=== PATIENT | male | born 1975 | race Caucasian/White ===

== ENCOUNTER 2017-11-25 20:14 | Inpatient (IN) ==
[2017-11-25] MEDS ORDERED: *HR* Promethazine 25 MG/ML VIAL IVP PRN (21:55)
[2017-11-25] MEDS ORDERED: Naloxone 0.4 MG/ML INJ IVP PRN (21:55)
[2017-11-25] MEDS ORDERED: Ondansetron 4 MG/2 ML VIAL IVP PRN (21:55)
[2017-11-25] MEDS ORDERED: MOM Conc 10 ML UD.LIQ PO PRN (21:55)
[2017-11-25] MEDS ORDERED: Ipratropium/Albuterol Neb 3 ML IH PRN (21:59)
[2017-11-25] MEDS ORDERED: Vancomycin 1,250 MG in D5% in Water 250 ML IVPB SCH (22:00)
--- NOTE | 2017-11-25 22:10 | Internal Med History&Physical ---
Date of Encounter: 11/25/17 Time of Encounter: 22:02 Assessment and Plan (1) SIRS (systemic inflammatory response syndrome) Current visit: No Status: Acute we will admit the pt into Med Surg He does meet SIRS criteria with elevated WBC, Source of inf as cellulites and tachycardia Normal Lactic acid Reviewed CT scan results.. Reviewed labs IV hdyration NS @ 125ml/hr O2 Duoneb PRN Blood cx sent at [place] ER Will check wound cx cont empirical abx Vanco (suspecting MRSA ) and Zosyn ( Psuedomonas and anaerobe coverage ) will consult surgery in AM for possible debridement NPO after mid night Cont symptomatic and supportive care IV analgesics (2) Cellulitis of upper back excluding scapular region Current visit: Yes Status: Acute Internal Medicine - H&P: HPI Chief complaint: Back pain.. Upper back cellulties Admitted From: Emergency Dept Plans for Post Hospital Care: Home History of present illness: Mr. Waggoner is a 41 year old male with no significant past medical history other than multiple skin abscess in the past, now he presented to [place] emergency room with upper back swelling also with puruelnt drainage noticed 2 days ago.. Patient stated that his swelling and erythema seems to be worsening. CT showed cellulities Rt posterior neck and posterior upper thorax consistent with cellulities. He was transferred here for further higher level of care. Pt denied any CP . 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 However he does pick his skin all the time. Pt was given IV Vanco and Zosyn in the ER. Past Med Surg Social Fam HX - Past Medical History Medical history: hypertension Psychiatric history: no psych history - Social History Smoking Status: Current every day smoker Smokeless Tobacco Status: No Alcohol use: none Drug use: none Internal Medicine - H&P: Meds No Known Home Drugs 11/25/17 [History] 3 Allergy/AdvReac Type Severity Reaction Status Date / Time No Known Allergies Allergy Verified 11/25/17 16:48 All Systems PM: A 10-system review of systems was performed and is negative for pertinent findings except as documented above in the HPI. Review of systems: Reviewed all the systems everything is benign except the systems and symptoms I mentioned in HPI - Constitutional Vitals: Temp Pulse Resp BP Pulse Ox 98.2 F 97 34 149/96 98 11/25/17 21:31 11/25/17 21:31 11/25/17 21:31 11/25/17 21:31 11/25/17 21:31 General appearance: Present: A&O X 3, no acute distress, answers questions appropriately - Head Head exam: Present: atraumatic, normal inspection - Neck Neck exam general surgery: Present: full ROM, supple - Respiratory Respiratory exam: Present: decreased breath sounds, wheezes (mild). Absent: rales, respiratory distress, rhonchi - Cardiovascular Cardiovascular exam: Present: +S1, +S2, tachycardia. Absent: systolic murmur - GI/Abdominal GI/Abdominal exam: Present: normal bowel sounds, soft. Absent: rebound, rigid, tenderness - Extremities Exam Extremities exam: Absent: calf tenderness, pedal edema, tenderness - Back Exam Back exam: Absent: CVA tenderness (L), CVA tenderness (R), tenderness Additional comments: 5x6 cm size erythematous rash with open ulcer in the middle noticed over Rt upper back above the scapular region. Purulent discharge noticed. - Neurological Exam Neurological exam: Present: alert, oriented X3 - Psychiatric Psychiatric exam: Present: anxious
[2017-11-25] MEDS: 0.9 % Sodium Chloride 1,000 ML IVC SCH (23:53)
[2017-11-25] MEDS: *HR* HYDROcodone/Acet 5/325 mg TABLET PO PRN (23:54)
[2017-11-25] MEDS: Nicotine 21 MG PATCH.TD24 TD SCH (23:55)
[2017-11-26] MEDS: Acetaminophen 325 MG TABLET PO PRN ×2 (01:25→19:12)
[2017-11-26] MEDS: Vancomycin 1,250 MG in D5% in Water 250 ML IVPB SCH ×2 (05:13→17:36)
[2017-11-26 05:20] LABS: Hemoglobin A1C 5.2 %
[2017-11-26 05:22] LABS: Basophils % 0.2 %; Eosinophils % 0.2 %; Hematocrit 41.8 % (37.5-50.1); Hemoglobin 13.8 g/dL (12.9-16.9); Immature Granulocytes % 0.7 % (0-4); Lymphocytes # 1.6 K/mcL (0.6-4.6); Lymphocytes % 9.1 %; Mean Corpuscular Volume 90.9 fL (83.0-100.0); Mean Platelet Volume 11.9 fL (9.4-12.4); Monocytes # 1.7 K/mcL (0.0-1.3); Monocytes % 9.5 %; Neutrophils # 14.4 K/mcL (1.6-8.9); Platelet Count 176 K/mcL (140-400); Red Cell Distribution Width 12.8 % (11.5-14.5); Segmented Neutrophils % 80.3 %
[2017-11-26 05:36] LABS: BUN/Creatinine Ratio 11 (6-26); Blood Urea Nitrogen 8 mg/dL (6-20); Calcium 8.2 mg/dL (8.6-10.3); Carbon Dioxide 23 mEq/L (23-29); Chloride 108 mEq/L (98-107); Glucose 146 mg/dL (70-105); Magnesium 1.8 mg/dL (1.6-2.6); Osmolality,Calculated 283 (280-300); Potassium 3.6 mEq/L (3.5-5.1); Sodium 136 mEq/L (136-145); eGFR For African Americans > 60 (> 60); eGFR For Non-African Americans > 60 (> 60)
[2017-11-26] MEDS: *HR* HYDROcodone/Acet 5/325 mg TABLET PO PRN ×3 (08:46→22:44)
[2017-11-26] MEDS: 0.9 % Sodium Chloride 1,000 ML IVC SCH ×2 (08:46→12:45)
[2017-11-26] MEDS: Nicotine 21 MG PATCH.TD24 TD SCH (08:46)
[2017-11-26] MEDS: *HR* FentaNYL (PF) 100 MCG/2 ML VIAL IVP PRN ×2 (12:45→17:37)
--- NOTE | 2017-11-26 18:00 | Internal Med Progress Note ---
Date of Encounter: 11/26/17 Time of Encounter: 11:00 - Assessment and plan (1) Sepsis Current Visit: Yes Status: Acute Assessment and plan: Patient presented with fever, tachycardia, leukocytosis. Normal lactic acid. Secondary to cellulitis and abscess in upper back. Continue IV hydration, IV antibiotics and follow up cultures. Monitor vital signs closely. Qualifiers: Sepsis type: sepsis due to unspecified organism Qualified Code(s): A41.9 - Sepsis, unspecified organism (2) Abscess Current Visit: Yes Status: Acute Assessment and plan: CT chest shows focal pocket of fluid measuring 4.7 x 1.1 cm, could represent an abscess, with surrounding inflammatory changes along the upper back. Continue IV vancomycin and Zosyn. Follow-up Gram stain and wound culture. Supportive care with pain control with when necessary IV fentanyl and oral hydrocodone. Surgery consultation for possible incision and drainage of abscess , will follow-up recommendations. (3) Tobacco abuse Current Visit: Yes Status: Chronic Assessment and plan: Continue nicotine transdermal patch. (4) Cellulitis of upper back excluding scapular region Current Visit: Yes Status: Acute Assessment and plan: Plan as above. - Subjective Interval history: Reports upper back pain. Improving fever, chills. No chest pain, shortness of breath, vomiting or diarrhea. - Constitutional Vitals: Temp Pulse Resp BP Pulse Ox 98.2 F 100 20 129/80 96 11/26/17 15:08 11/26/17 15:08 11/26/17 15:08 11/26/17 15:08 11/26/17 15:08 General appearance: Present: mild distress, A&O X 3, answers questions appropriately - Respiratory Respiratory exam: Present: CTAB. Absent: accessory muscle use, rales, rhonchi, wheezes - Cardiovascular Cardiovascular exam: Present: RRR, +S1, +S2. Absent: diastolic murmur, gallop, rubs, systolic murmur - GI/Abdominal GI/Abdominal exam: Present: normal bowel sounds, soft, no peritoneal signs. Absent: distended, tenderness - Extremities Exam Extremities exam: Present: full ROM, warm, radial pulses palpable and symmetrical. Absent: calf tenderness, cyanotic, pedal edema - Back Exam Additional comments: Right upper back with 5 x 5 cm focal swelling, opened with dry crusted seropurulent discharge; surrounding extensive erythema/tenderness/induration extending into the posterior neck; - Neurological Exam Neurological exam: Present: CN II-XII intact, oriented X3, no focal deficits. Absent: pronater drift, facial droop, speech deficit Internal Medicine: Result - Labs CBC & Chem 7: 11/26/17 05:00 11/26/17 05:00 Labs: Short CBC 11/26/17 Range/Units 05:00 WBC 18.0 H (4.3-11.1) K/mcL Hgb 13.8 D (12.9-16.9) g/dL Hct 41.8 (37.5-50.1) % Plt Count 176 (140-400) K/mcL Neutrophils # 14.4 H (1.6-8.9) K/mcL BMP 11/26/17 05:00 Sodium 136 Potassium 3.6 Chloride 108 H Carbon Dioxide 23 BUN 8 Creatinine 0.71 Glucose 146 H Calcium 8.2 L Consult Discharge Plan - Plan Referrals: NONE,PCP [Primary Care Provider] - Lee Orozco [Family Provider] -
--- NOTE | 2017-11-26 20:38 | General Surgery Consult Note ---
Date of Encounter: 11/26/17 Time of Encounter: 20:35 History of Present Illness Requesting physician: Kait Hartmann History of present illness: General Surgery - this is a delayed dictation. The patient was initially seen approx 1400 for surgical assessment and treatment. The patient requested that he be fed rather than be kept NPO until surgery this evening 41-year-old male transferred from [facility] after presenting there with mid upper back swelling and purulent drainage. Symptoms began 2 days ago but the patient admits that this had "building" for the past several days. CT demonstrated cellulitis right posterior neck and posterior upper thorax consistent with cellulitis. He was transferred to [facility] for further evaluation and care. He was transferred to. Surgical consultation was placed today. At the time of my initial visit the patient was in no acute distress however this evening the patient is febrile to 102.3; heart rate is elevated to 116; respiratory status stable of 14; blood pressure stable at 140/86 Allergies: No known drug allergies Medications: no home meds. Social history: Patient is a current every day smoker; he denies alcohol or illicit drug use Physical examination: age-appropriate male resting comfortably in his hospital bed. This evening he was in distress related to pain and purulent drainage from the abscess mid upper thorax. The patient is febrile this evening - 102.3 Skin is quite warm; moist, without obvious jaundice Lungs: Clear bilaterally Posterior thorax - complex 6 cm ulcerated area upper midline and purulent drainage. Tenderness limits my ability to examine the lesion but I suspect presence of subcutaneous fluid. This lesion appears to be an inflamed, infected EIC that will require I&D Cardiac: Earlier today his rate was regular approximately 95 bpm but currently he is tachycardic 116; no appreciable murmurs Abdomen: Soft nontender Extremities no obvious clubbing, cyanosis or edema. Laboratories: White count 18.8, hemoglobin 13.8, hematocrit 41.8; neutrophils 14.4% Electrolytes, BUN, creatinine within normal limits Impression: Abscess versus inflamed infected epidermal inclusion cyst upper midline posterior thorax Patient will require incision and drainage As the patient has eaten today; surgery is planned for a.m. I discussed this at length with the patient. Risks include hemorrhage, infection, failure to heal, and recurrence Consent has been obtained. Plan: Surgery tomorrow Nothing by mouth after midnight except for medications Signed surgical consent to accompany patient to OR. Past Med Surg Social Fam HX - Past Medical History Medical history: hypertension Psychiatric history: no psych history - Past Surgical History Surgical History: appendectomy, orthopedic, other - Social History Smoking Status: Current every day smoker Packs per day: 1 Smokeless Tobacco Status: No Alcohol use: none Drug use: none Medications and Allergies No Known Home Drugs 11/25/17 [History] 3 Allergy/AdvReac Type Severity Reaction Status Date / Time No Known Allergies Allergy Verified 11/25/17 16:48 Review of Systems All systems PM: A 10-system review of systems was performed and is negative for pertinent findings except as documented above in the HPI. General Surgery Exam Initial Vital Signs Temp Pulse Resp BP Pulse Ox 98.2 F 97 34 149/96 98 11/25/17 21:31 11/25/17 21:31 11/25/17 21:31 11/25/17 21:31 11/25/17 21:31 Exam Initial Vital Signs Temp Pulse Resp BP Pulse Ox 98.2 F 97 34 149/96 98 11/25/17 21:31 11/25/17 21:31 11/25/17 21:31 11/25/17 21:31 11/25/17 21:31 Results - Labs 11/26/17 05:00 11/26/17 05:00 Abnormal lab results WBC 18.0 K/mcL (4.3-11.1) H 11/26/17 05:00 Neutrophils # 14.4 K/mcL (1.6-8.9) H 11/26/17 05:00 Monocytes # 1.7 K/mcL (0.0-1.3) H 11/26/17 05:00 Chloride 108 mEq/L (98-107) H 11/26/17 05:00 Glucose 146 mg/dL (70-105) H 11/26/17 05:00 POC Glucose 111 (58-89) H 11/26/17 11:37 Calcium 8.2 mg/dL (8.6-10.3) L 11/26/17 05:00 Diabetes panel 11/26/17 11/26/17 Range/Units 05:00 05:00 Sodium 136 (136-145) mEq/L Potassium 3.6 (3.5-5.1) mEq/L Chloride 108 H (98-107) mEq/L Carbon Dioxide 23 (23-29) mEq/L BUN 8 (6-20) mg/dL Creatinine 0.71 (0.70-1.30) mg/dL Glucose 146 H (70-105) mg/dL Hemoglobin A1c 5.2 ( - 5.6) % Calcium 8.2 L (8.6-10.3) mg/dL Calcium panel 11/26/17 Range/Units 05:00 Calcium 8.2 L (8.6-10.3) mg/dL Pituitary panel 11/26/17 Range/Units 05:00 Sodium 136 (136-145) mEq/L Potassium 3.6 (3.5-5.1) mEq/L Chloride 108 H (98-107) mEq/L Carbon Dioxide 23 (23-29) mEq/L BUN 8 (6-20) mg/dL Creatinine 0.71 (0.70-1.30) mg/dL Glucose 146 H (70-105) mg/dL Calcium 8.2 L (8.6-10.3) mg/dL Adrenal panel 11/26/17 Range/Units 05:00 Sodium 136 (136-145) mEq/L Potassium 3.6 (3.5-5.1) mEq/L Chloride 108 H (98-107) mEq/L Carbon Dioxide 23 (23-29) mEq/L BUN 8 (6-20) mg/dL Creatinine 0.71 (0.70-1.30) mg/dL Glucose 146 H (70-105) mg/dL Calcium 8.2 L (8.6-10.3) mg/dL All other labs normal. Consult Discharge Plan - Plan Referrals: NONE,PCP [Primary Care Provider] - Lee Orozco [Family Provider] -
[2017-11-27] MEDS: Vancomycin 1,250 MG in D5% in Water 250 ML IVPB SCH (04:17)
[2017-11-27 05:13] LABS: Basophils # 0.1 K/mcL (0.0-0.2); Basophils % 0.3 %; Eosinophils # 0.1 K/mcL (0.0-0.6); Eosinophils % 0.7 %; Hematocrit 37.7 % (37.5-50.1); Immature Granulocytes % 0.5 % (0-4); Lymphocytes # 1.3 K/mcL (0.6-4.6); Lymphocytes % 7.7 %; Mean Corpuscular HGB Conc 32.4 g/dL (31.6-35.5); Mean Corpuscular Volume 92.9 fL (83.0-100.0); Mean Platelet Volume 11.8 fL (9.4-12.4); Monocytes # 1.3 K/mcL (0.0-1.3); Monocytes % 8.1 %; Neutrophils # 13.6 K/mcL (1.6-8.9); Platelet Count 151 K/mcL (140-400); Red Blood Count 4.06 M/mcL (4.19-5.50); Red Cell Distribution Width 12.8 % (11.5-14.5); Segmented Neutrophils % 82.7 %
[2017-11-27 05:14] LABS: Hemoglobin 12.2 g/dL (12.9-16.9)
[2017-11-27 05:55] LABS: BUN/Creatinine Ratio 8 (6-26); Blood Urea Nitrogen 7 mg/dL (6-20); Calcium 8.1 mg/dL (8.6-10.3); Carbon Dioxide 25 mEq/L (23-29); Chloride 103 mEq/L (98-107); Glucose 148 mg/dL (70-105); Osmolality,Calculated 275 (280-300); Potassium 3.8 mEq/L (3.5-5.1); Sodium 132 mEq/L (136-145); eGFR For African Americans > 60 (> 60); eGFR For Non-African Americans > 60 (> 60)
[2017-11-27] MEDS: 0.9 % Sodium Chloride 1,000 ML IVC SCH ×2 (06:12→23:57)
[2017-11-27] MEDS: *HR* HYDROcodone/Acet 5/325 mg TABLET PO PRN (06:15)
--- NOTE | 2017-11-27 08:26 | Internal Med Progress Note ---
<Prabhu Hernandez - Last Filed: 11/27/17 14:05> Date of Encounter: 11/27/17 Time of Encounter: 08:23 - Assessment and plan (1) Abscess Current Visit: Yes Status: Acute Assessment and plan: CT chest shows focal pocket of fluid measuring 4.7 x 1.1 cm, could represent an abscess, with surrounding inflammatory changes along the upper back. -Continue IV vancomycin and Zosyn. -Wound CX was positive for staph aureus Plan: -Surgery today -Fentanyl 25 mcg IV Q4H PRN -Carroll 5-325 PO Q6 PRN -Vancomycin 1250 mg IV Q12 -Zosyn 3.375 g IV Q8 (2) Sepsis Current Visit: Yes Status: Acute Assessment and plan: Patient presented with fever, tachycardia, leukocytosis; Normal lactic acid White count has decreased from 18 to 16.4. -Secondary to cellulitis and abscess in upper back -Continue IV hydration, IV antibiotics and follow up cultures -Monitor vital signs closely. Qualifiers: Sepsis type: sepsis due to unspecified organism Qualified Code(s): A41.9 - Sepsis, unspecified organism (3) Bacteremia Current Visit: Yes Status: Acute Assessment and plan: Patient's blood culture was positive for staph Repeat blood culture TTE (4) Cellulitis of upper back excluding scapular region Current Visit: Yes Status: Acute Assessment and plan: General surgery is on board; possible surgery today. (5) Tobacco abuse Current Visit: Yes Status: Chronic Assessment and plan: Continue nicotine transdermal patch. - Subjective Interval history: Mr. Waggoner is a 41 year old male with no significant PMH other than multiple skin abscess in the past, who presented to [place] ED with upper back swelling and puruelnt drainage that he noticed 2 days prior. Patient stated that his swelling and erythema seems to be worsening. CT showed cellulities Rt posterior neck and posterior upper thorax consistent with cellulities. He was transferred here for further higher level of care. Pt denied any CP . 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 Admits that he does pick his skin all the time. Pt was given IV Vanco and Zosyn in the ER. Upon arrival, 34 BP was elevated at 149 /96 and respiratory rate was 34. All other vital signs were within normal limits. Laboratory analysis significant for the following: white count 18.8, hemoglobin 13.8, hematocrit 41.8; neutrophils 14.4. General surgery has been consulted. Per impression of gen surg: Abscess vs. inflamed infected epidermal inclusion cyst upper midline posterior thorax. Patient will require incision and drainage. Possible surgery today; patient was placed NPO after midnight except for medications. Patient seen and examined at bedside this morning. Reported feeling "under the weather." Reports a moderate amount of pain in his back, but states that pain is reasonably controlled at this time. - Constitutional Vitals: Temp Pulse Resp BP Pulse Ox 98.0 F 98 12 136/82 97 11/27/17 07:46 11/27/17 07:46 11/27/17 07:46 11/27/17 07:46 11/27/17 07:46 General appearance: Present: mild distress, A&O X 3, answers questions appropriately - Head Head exam: Present: atraumatic, normocephalic - Eye Eye exam: Present: PERRL, conjuntiva pink, sclera anicteric Pupils: Present: PERRL - Neck Neck exam general surgery: Present: supple, trachea midline. Absent: lymphadenopathy - Respiratory Respiratory exam: Present: CTAB. Absent: accessory muscle use, rales, rhonchi, wheezes - Cardiovascular Cardiovascular exam: Present: RRR, +S1, +S2. Absent: diastolic murmur, gallop, rubs, systolic murmur - GI/Abdominal GI/Abdominal exam: Present: normal bowel sounds, soft, no peritoneal signs. Absent: distended, tenderness - Extremities Exam Extremities exam: Present: warm, radial pulses palpable and symmetrical. Absent : calf tenderness, cyanotic, pedal edema - Back Exam Additional comments: scars visible - Neurological Exam Neurological exam: Present: CN II-XII intact, oriented X3, no focal deficits. Absent: pronater drift, facial droop, speech deficit - Skin Skin exam: Present: dry Internal Medicine: Result - Labs CBC & Chem 7: 11/27/17 05:00 11/27/17 05:00 Labs: Short CBC 11/27/17 Range/Units 05:00 WBC 16.4 H (4.3-11.1) K/mcL Hgb 12.2 L D (12.9-16.9) g/dL Hct 37.7 (37.5-50.1) % Plt Count 151 (140-400) K/mcL Neutrophils # 13.6 H (1.6-8.9) K/mcL [facility] 11/27/17 05:00 Sodium 132 L Potassium 3.8 Chloride 103 Carbon Dioxide 25 BUN 7 Creatinine 0.84 Glucose 148 H Calcium 8.1 L Consult Discharge Plan - Plan Referrals: Conner Pappas MD [Non-Partnered Physician] - NONE,PCP [Primary Care Provider] - <MichelleEdmundo T - Last Filed: 11/27/17 15:11> Date of Encounter: 11/27/17 - Constitutional Vitals: Temp Pulse Resp BP Pulse Ox 98.8 F 112 16 124/88 92 11/27/17 14:51 11/27/17 14:51 11/27/17 14:51 11/27/17 14:51 11/27/17 14:51 Internal Medicine: Result - Labs CBC & Chem 7: 11/27/17 05:00 11/27/17 05:00 Labs: Short CBC 11/27/17 Range/Units 05:00 WBC 16.4 H (4.3-11.1) K/mcL Hgb 12.2 L D (12.9-16.9) g/dL Hct 37.7 (37.5-50.1) % Plt Count 151 (140-400) K/mcL Neutrophils # 13.6 H (1.6-8.9) K/mcL [facility] 11/27/17 05:00 Sodium 132 L Potassium 3.8 Chloride 103 Carbon Dioxide 25 BUN 7 Creatinine 0.84 Glucose 148 H Calcium 8.1 L - Attending Attestation seen and evaluated at bedside 41 M with staph aureus bacteremia, cellulitis and abscess of his back. Wound culture also growing staph aurues, sensitivity is pending,patient is on Vanco and Zosyn He is complaining of night sweats. Physical exam is remarkable for multiple scabs on his hands and healed skin lesions on his back, as well as upper R shoulder posterior region with a wound dressing that is slightly soaked Labs and Imaging reviewed: Leukocytosis , slowly improving. A1C is normal. Continue IV antibiotics, repeat blood culture. Per Surgery, he is for Incision and drainage today. Rest as in resident physician's documentation
[2017-11-27] MEDS: Nicotine 21 MG PATCH.TD24 TD SCH (08:38)
--- NOTE | 2017-11-27 11:59 | Anesthesia Evaluation PreOp ---
Date of Encounter: 11/27/17 Time of Encounter: 11:58 - Past History Planned Operation: I & D abcess Cardiac History: HTN (no longer medicated) Pulmonary History: Smoker (1ppd x 24yrs) [employer] History: Denies Any Significant HX Other Medical History: Denies Any Significant HX, Other (This hospitalization: +SIRS,+MRSA in blood) Anesthesia History: No Prior Anesthetic Complications (R-ankel, Appy, T&A), Past Anesthesia Alcohol Use: none Drug use: none Medications and Allergies No Known Home Drugs 11/25/17 [History] 3 Allergy/AdvReac Type Severity Reaction Status Date / Time No Known Allergies Allergy Verified 11/25/17 16:48 - Meds/Allergy Pre-op Review Medications Reviewed: Yes Allergies Reviewed: Yes Anesthesia Results - Labs 11/27/17 05:00 11/27/17 05:00 Laboratory Results WBC 16.4 K/mcL (4.3-11.1) H 11/27/17 05:00 RBC 4.06 M/mcL (4.19-5.50) L 11/27/17 05:00 Hgb 12.2 g/dL (12.9-16.9) L D 11/27/17 05:00 Hct 37.7 % (37.5-50.1) 11/27/17 05:00 MCV 92.9 fL (83.0-100.0) 11/27/17 05:00 MCH 30.0 pg (28.0-33.3) 11/27/17 05:00 MCHC 32.4 g/dL (31.6-35.5) 11/27/17 05:00 RDW 12.8 % (11.5-14.5) 11/27/17 05:00 Plt Count 151 K/mcL (140-400) 11/27/17 05:00 MPV 11.8 fL (9.4-12.4) 11/27/17 05:00 Immature Gran % 0.5 % (0-4) 11/27/17 05:00 Seg Neutrophils % 82.7 % 11/27/17 05:00 Lymphocytes % 7.7 % 11/27/17 05:00 Monocytes % 8.1 % 11/27/17 05:00 Eosinophils % 0.7 % 11/27/17 05:00 Basophils % 0.3 % 11/27/17 05:00 Neutrophils # 13.6 K/mcL (1.6-8.9) H 11/27/17 05:00 Lymphocytes # 1.3 K/mcL (0.6-4.6) 11/27/17 05:00 Monocytes # 1.3 K/mcL (0.0-1.3) 11/27/17 05:00 Eosinophils # 0.1 K/mcL (0.0-0.6) 11/27/17 05:00 Basophils # 0.1 K/mcL (0.0-0.2) 11/27/17 05:00 Sodium 132 mEq/L (136-145) L 11/27/17 05:00 Potassium 3.8 mEq/L (3.5-5.1) 11/27/17 05:00 Chloride 103 mEq/L (98-107) 11/27/17 05:00 Carbon Dioxide 25 mEq/L (23-29) 11/27/17 05:00 BUN 7 mg/dL (6-20) 11/27/17 05:00 Creatinine 0.84 mg/dL (0.70-1.30) 11/27/17 05:00 Est GFR ( Amer) > 60 (> 60) 11/27/17 05:00 Est GFR (Non-Af Amer) > 60 (> 60) 11/27/17 05:00 BUN/Creatinine Ratio 8 (6-26) 11/27/17 05:00 Glucose 148 mg/dL (70-105) H 11/27/17 05:00 POC Glucose 91 (58-89) H 11/27/17 11:09 Est Mean Plasma Glucose 103 mg/dl 11/26/17 05:00 Hemoglobin A1c 5.2 % (-5.6) 11/26/17 05:00 Calculated Osmolality 275 (280-300) L 11/27/17 05:00 Lactic Acid 0.9 mmol/L (0.5-2.2) 11/26/17 05:00 Calcium 8.1 mg/dL (8.6-10.3) L 11/27/17 05:00 Magnesium 1.8 mg/dL (1.6-2.6) 11/26/17 05:00 Anesthesia Exam Vital Signs Temp Pulse Resp BP Pulse Ox 11/27/17 11:04 98.4 F 97 14 128/83 97 11/27/17 07:46 98.0 F 98 12 136/82 97 11/27/17 03:42 99.4 F 102 15 130/87 97 11/26/17 23:43 99.1 F 101 15 141/76 97 11/26/17 21:28 100.1 F H 116 14 125/78 97 11/26/17 19:05 102.3 F H 116 14 140/86 96 11/26/17 15:08 98.2 F 100 20 129/80 96 Intake and Output 11/26/17 11/27/17 11/27/17 23:59 07:59 15:59 Intake Total 741 / 741 1045 / 1045 0 / 0 Output Total 550 / 550 700 / 700 200 / 200 Balance 191 / 191 345 / 345 -200 / -200 Intake: IV Fluids 501 / 501 1045 / 1045 0.9 % Sodium Chloride 1,000 ML 51 / 51 795 / 795 @ 100 mls/hr IVC .Q10H TOY Rx#: [id number] Zosyn 3.375 GM In 0.9 % Sodium 200 / 200 Chloride 100 ML @ 25 mls/hr IVPB Q8H TOY Rx#:[id number] Vancocin 1,250 MG In Dextrose 5 250 / 250 250 / 250 % 250 ML @ 166.667 mls/hr IVPB Q12H TOY Rx#:[id number] Oral 240 / 240 0 / 0 0 / 0 Output: Urine 550 / 550 700 / 700 200 / 200 Other: Meal Dinner Percent of Meal Consumed 100% Weight 88.8 kg Blood Glucose* 143 91 Patient Weight 11/27/17 23:59 Weight 88.8 kg Height: 5'6" Weight: 195# bmi = 31.6 NPO (# of Hours): mnOC - HEENT Pupil (Motor): Pupils equal, EOMI Mallampati: III Teeth: Poor dentition (V. poor dentition with multiple nubs rotting at gumline & several others missing) Oral Opening: Greater than 3 - METALWORKING [employer] LOC: Oriented [employer]ALWORKING [employer] Motor: Normal RUE, Normal LUE, Normal RLE, Normal LLE, Normal Face [employer] Sensory: Normal: RUE, LUE, RLE, LLE, Face - Cardiac Rhythm: Regular Murmur: None - Pulmonary Breath Sounds: bilateral Clear Respiratory Effort: Symmetrical Anesthesia Assess/Plan ASA Score: 2 (Smoker) Modified Kathy Scale for Level of Consciousness: Cooperative, oriented, and tranquil Anesthetic Plan: General Monitoring Plan: Standard Monitors Recovery Plan: PACU Anes Supervising Prov Stmt: PT seen/evaluated, R&B discussed, questons answered and consent obtained. Christopher Miller MD
[2017-11-27] MEDS ORDERED: *HR* OxyCODONE Immed Rel 5 MG TABLET PO PRN (12:01)
[2017-11-27] MEDS ORDERED: *HR* Promethazine 25 MG/ML VIAL IVP PRN (12:01)
[2017-11-27] MEDS ORDERED: *HR* HYDROcodone/Acet 7.5/325 mg TABLET PO PRN (12:01)
[2017-11-27] MEDS ORDERED: *HR* HYDROmorphone 2 MG TABLET PO PRN (12:01)
[2017-11-27] MEDS ORDERED: MORPHINE SUL Oral CONC 10 MG/0.5 ML ORAL.SYG SL PRN (12:01)
[2017-11-27] MEDS ORDERED: *HR* FentaNYL (PF) 100 MCG/2 ML VIAL ONE (12:09)
[2017-11-27] MEDS ORDERED: *HR* Propofol 200 MG/20 ML VIAL IVP ONE ×2 (12:09→13:49)
[2017-11-27] MEDS ORDERED: Lidocaine -MPF 4% 5 ML AMPUL ONE (12:11)
[2017-11-27] MEDS ORDERED: Dexamethasone 4 MG/ML VIAL ONE (12:11)
[2017-11-27] MEDS ORDERED: Lidocaine -MPF 2% 2 ML VIAL ONE (12:11)
[2017-11-27] MEDS ORDERED: *HR* Succinylcholine 200 MG/10 ML VIAL IVP ONE (12:11)
[2017-11-27] MEDS ORDERED: Ondansetron 4 MG/2 ML VIAL ONE (12:11)
[2017-11-27] MEDS ORDERED: Acetaminophen IV 1,000 MG/100 ML INFUS..BTL ONE (12:51)
--- NOTE | 2017-11-27 14:30 | Operative Note ---
Date of procedure: 11/27/17 Pre-op diagnosis: Abscess upper midline posterior thigh Post-op diagnosis: same Procedure: Incision, drainage, and debridement abscess upper midline posterior thorax Complications: None apparent Anesthesia: [facility] Surgeon: Conner Pappas Was there an child center assistant present: No Estimated blood loss (cc): 25 IV fluids (cc): 500 Specimen: aerobic and anaerobic cultures; necrotic tissue from abscess Condition: stable Disposition: PACU Procedure in Detail: The patient was brought to the operating room where he was placed supine on the operating room table. The patient was appropriately identified as to person and procedure. The accuracy of this information was confirmed by the patient and the procedure team. The patient was then intubated and anesthetized by [facility]. When the airway was secured, the patient was placed in a left lateral decubitus position. The abscess and upper posterior thorax was prepped and draped in usual sterile fashion. The abscess with surrounding induration measured 12 cm in diameter. When the skin was compressed multiple drainage sites of pus were encountered. A transverse incision was placed over the readily apparent abscess midline onto the right scapula. The incision was extended to the spinal fascia. There was no formed abscess cavity but pus was exiting the incised tissue. Aerobic and anaerobic cultures were obtained. The wound was then debrided of obviously necrotic tissue. Wound was copiously irrigated with a pulsatile irrigation system (Pulsavac plus) using 3 L of saline. Bleeding points were controlled with electrocautery but the entire wound was hemorrhagic due to the acute inflammation. Wound was packed with half -inch iodoform gauze, covered by 4 x 4 gauze, followed by an ABD, followed by tape. The patient was taken to recovery in stable condition. Needle, sponge, and instrument counts were correct at the close of the case.
--- NOTE | 2017-11-27 15:04 | Anesthesia Evaluation Post Op ---
Date of Encounter: 11/27/17 Time of Encounter: 15:00 - Vital Signs Vital Signs: Vital Signs/O2 Sat/Glucose, Most Current Temp Pulse Resp BP Pulse Ox 11/27/17 14:51 98.8 F 112 16 124/88 92 11/27/17 14:41 110 16 121/85 93 11/27/17 14:31 112 16 121/79 92 11/27/17 14:21 99.5 F 122 21 125/78 96 - Lungs Lungs: Clear Ascult./Percussion - Airway Airway: Non-obstructed - Cardiovascular Regular Rate - Mental Status Mental Status: Alert & Oriented, Answers Appropriately - Pain Pain Scale: 0 - Nausea Vomiting Nausea Vomiting: Not Present - Hydration Hydration: Tolerates oral liquids - Discharge PostOp Status: Transfer Patient to floor
[2017-11-27] MEDS ORDERED: Acetaminophen 325 MG TABLET PO PRN (15:18)
[2017-11-27] MEDS ORDERED: Naloxone 0.4 MG/ML INJ IVP PRN (15:18)
[2017-11-27] MEDS ORDERED: MOM Conc 10 ML UD.LIQ PO PRN (15:18)
[2017-11-27] MEDS ORDERED: Ondansetron 4 MG/2 ML VIAL IVP PRN (15:18)
[2017-11-27] MEDS ORDERED: *HR* FentaNYL (PF) 100 MCG/2 ML VIAL IVP PRN (15:18)
[2017-11-27] MEDS ORDERED: Ipratropium/Albuterol Neb 3 ML IH PRN (15:18)
[2017-11-28 06:14] LABS: Basophils % 0.1 %; Eosinophils % 0.1 %; Hematocrit 37.6 % (37.5-50.1); Hemoglobin 12.2 g/dL (12.9-16.9); Immature Granulocytes % 1.4 % (0-4); Lymphocytes # 0.8 K/mcL (0.6-4.6); Lymphocytes % 4.4 %; Mean Corpuscular HGB Conc 32.4 g/dL (31.6-35.5); Mean Corpuscular Hemoglobin 29.9 pg (28.0-33.3); Mean Corpuscular Volume 92.2 fL (83.0-100.0); Mean Platelet Volume 12.5 fL (9.4-12.4); Monocytes % 5.1 %; Neutrophils # 16.6 K/mcL (1.6-8.9); Platelet Count 173 K/mcL (140-400); Red Blood Count 4.08 M/mcL (4.19-5.50); Red Cell Distribution Width 12.6 % (11.5-14.5); Segmented Neutrophils % 88.9 %
[2017-11-28] MEDS: Nicotine 21 MG PATCH.TD24 TD SCH (09:30)
--- NOTE | 2017-11-28 10:49 | General Surgery Progress Note ---
Date of Encounter: 11/28/17 Time of Encounter: 10:44 Subjective Patient reports: feels better, pain is less Narrative: General Surgery - POD #1 Patient feeling much improved; afebrile, pulse 84, respirations 16, blood pressure 114/75 And swelling upper midline posterior thorax significantly diminished. Erythema persists Wound posterior thorax examined; serosanguineous drainage on gauze dressing; packing intact, no obvious pus draining after operative debridement Cultures dated 11/25/17 demonstrate MRSA Operative cultures obtained yesterday, pending Labs: Increased leukocytosis - 18.7, likely response to surgery; neutrophilia also increased to 16.6% Impression: Postoperative day 1, status post incision, drainage, debridement large abscess upper posterior thorax Pain and swelling diminished Plan: maintain wound packing today, begin to extract this packing tomorrow. Objective Vital Signs - Last 8 Hours Temp Pulse Resp BP Pulse Ox 11/28/17 07:33 97.7 F 84 16 114/75 98 11/28/17 04:12 97.5 F L 84 14 119/79 96 Intake and Output 11/27/17 11/28/17 11/28/17 23:59 07:59 15:59 Intake Total 610 / 610 1369 / 1369 340 / 340 Output Total 1500 / 1500 1600 / 1600 Balance -890 / -890 -231 / -231 340 / 340 Intake: IV Fluids 250 / 250 649 / 649 100 / 100 0.9 % Sodium Chloride 1,000 ML 299 / 299 @ 75 mls/hr IVC .[id number] [facility] Rx #:[id number] Zosyn 3.375 GM In 0.9 % Sodium 100 / 100 100 / 100 Chloride 100 ML @ 25 mls/hr IVPB Q8H [facility] Rx#:[id number] Vancocin 1,250 MG In 0.9 % 250 / 250 250 / 250 Sodium Chloride 250 ML @ 166. 667 mls/hr IVPB Q8H [facility] Rx#: [id number] Oral 360 / 360 720 / 720 240 / 240 Output: Urine 1500 / 1500 1600 / 1600 Other: Meal Dinner Breakfast Percent of Meal Consumed 100% 100% Weight 88.91 kg Patient Weight 11/28/17 23:59 Weight 88.91 kg - Labs 11/28/17 05:05 11/27/17 05:00 - VTE Documentation of Mechanical Device: Intermittent pneumatic compression device Consult Discharge Plan - Plan Referrals: Conner Pappas MD [Non-Partnered Physician] -
--- NOTE | 2017-11-28 11:37 | Internal Med Progress Note ---
<Prabhu Hernandez - Last Filed: 11/28/17 14:58> Date of Encounter: 11/28/17 Time of Encounter: 11:35 - Assessment and plan (1) Abscess Current Visit: Yes Status: Acute Assessment and plan: CT chest showed: focal pocket of fluid measuring 4.7 x 1.1 cm, could represent an abscess, with surrounding inflammatory changes along the upper back. -Wound CX was positive for staph aureus -POD #1, s/p incision, drainage, debridement large abscess upper posterior thorax -Serosanguineous drainage on gauze dressing; packing intact, no obvious pus draining after operative debridement -Pain and swelling diminished Plan: -Fentanyl 25 mcg IV Q4H PRN -[place] 5-325 PO Q6 PRN -Vancomycin 1250 mg IV Q12 -Per surgery: maintain wound packing today, begin to extract packing tomorrow. (2) Sepsis Current Visit: Yes Status: Acute Assessment and plan: Patient presented with fever, tachycardia, leukocytosis; Normal lactic acid White count 18.7 -Secondary to cellulitis and abscess in upper back -Continue IV hydration, IV antibiotics and follow up cultures -Monitor vital signs closely. Qualifiers: Sepsis type: sepsis due to unspecified organism Qualified Code(s): A41.9 - Sepsis, unspecified organism (3) Bacteremia Current Visit: Yes Status: Acute Assessment and plan: Patient's previous blood culture was positive for staph -Repeat blood culture -TTE (4) Cellulitis of upper back excluding scapular region Current Visit: Yes Status: Acute Assessment and plan: Pain and swelling diminished -Continue Vancomycin -Blood CX pending (5) Tobacco abuse Current Visit: Yes Status: Chronic Assessment and plan: Continue nicotine transdermal patch. - Subjective Interval history: Patient seen and examined at bedside this morning. States that he is feeling much better. POD #1 abscess drainage. States that he is no longer feeling "under the weather." Patient is resting comfortablin in bed and has no complaints at this time. - Constitutional Vitals: Temp Pulse Resp BP Pulse Ox 97.9 F 86 15 128/80 96 11/28/17 10:45 11/28/17 10:45 11/28/17 10:45 11/28/17 10:45 11/28/17 10:45 General appearance: Present: mild distress, A&O X 3, answers questions appropriately - Head Head exam: Present: atraumatic, normocephalic - Eye Eye exam: Present: PERRL, conjuntiva pink, sclera anicteric Pupils: Present: PERRL - Neck Neck exam general surgery: Present: supple, trachea midline. Absent: lymphadenopathy - Respiratory Respiratory exam: Present: CTAB. Absent: accessory muscle use, rales, rhonchi, wheezes - Cardiovascular Cardiovascular exam: Present: RRR, +S1, +S2. Absent: diastolic murmur, gallop, rubs, systolic murmur - Extremities Exam Extremities exam: Present: warm, radial pulses palpable and symmetrical. Absent : calf tenderness, cyanotic, pedal edema - Back Exam Additional comments: Dressing in place on posterior thorax; erythema is still present. - Neurological Exam Neurological exam: Present: CN II-XII intact, oriented X3, no focal deficits. Absent: pronater drift, facial droop, speech deficit - Skin Skin exam: Present: dry Internal Medicine: Result - Labs CBC & Chem 7: 11/28/17 05:05 11/27/17 05:00 Labs: Short CBC 11/28/17 Range/Units 05:05 WBC 18.7 H (4.3-11.1) K/mcL Hgb 12.2 L (12.9-16.9) g/dL Hct 37.6 (37.5-50.1) % Plt Count 173 (140-400) K/mcL Neutrophils # 16.6 H (1.6-8.9) K/mcL - VTE Documentation of Mechanical Device: Intermittent pneumatic compression device Consult Discharge Plan - Plan Referrals: Conner Pappas MD [Non-Partnered Physician] - <Carlos Casillas - Last Filed: 11/28/17 19:08> Date of Encounter: 11/28/17 - Constitutional Vitals: Temp Pulse Resp BP Pulse Ox 98.5 F 87 15 133/91 97 11/28/17 18:40 11/28/17 18:40 11/28/17 18:40 11/28/17 18:40 11/28/17 18:40 Internal Medicine: Result - Labs CBC & Chem 7: 11/28/17 05:05 11/27/17 05:00 Labs: Short CBC 11/28/17 Range/Units 05:05 WBC 18.7 H (4.3-11.1) K/mcL Hgb 12.2 L (12.9-16.9) g/dL Hct 37.6 (37.5-50.1) % Plt Count 173 (140-400) K/mcL Neutrophils # 16.6 H (1.6-8.9) K/mcL - Attending Attestation I examined this patient and my medical decision-making was reviewed with the Resident Physician. I agree with the documented findings, disposition and treatment plan as described except to the extent set forth below.
[2017-11-28] MEDS: *HR* HYDROcodone/Acet 5/325 mg TABLET PO PRN (17:09)
[2017-11-28] MEDS: 0.9 % Sodium Chloride 1,000 ML IVC SCH ×2 (19:27)
[2017-11-29] MEDS: *HR* HYDROcodone/Acet 5/325 mg TABLET PO PRN ×3 (02:21→17:45)
--- NOTE | 2017-11-29 06:56 | Internal Med Progress Note ---
<Prabhu Hernandez - Last Filed: 11/29/17 15:33> Date of Encounter: 11/29/17 Time of Encounter: 09:39 - Assessment and plan (1) Abscess Current Visit: Yes Status: Acute Assessment and plan: CT chest showed: focal pocket of fluid measuring 4.7 x 1.1 cm, could represent an abscess, with surrounding inflammatory changes along the upper back. -Wound CX was positive for staph aureus -POD #2, s/p incision, drainage, debridement large abscess upper posterior thorax -Serosanguineous drainage on gauze dressing; packing intact, no obvious pus draining after operative debridement -Pain and swelling diminished Plan: -Fentanyl 25 mcg IV Q4H PRN -[place] 5-325 PO Q6 PRN -Vancomycin 1250 mg IV Q12 (2) Sepsis Current Visit: Yes Status: Acute Assessment and plan: Patient presented with fever, tachycardia, leukocytosis; Normal lactic acid White count 18.7 -Secondary to cellulitis and abscess in upper back -Continue IV hydration, IV antibiotics and follow up cultures -Monitor vital signs closely. Qualifiers: Sepsis type: sepsis due to unspecified organism Qualified Code(s): A41.9 - Sepsis, unspecified organism (3) Bacteremia Current Visit: Yes Status: Acute Assessment and plan: Patient's blood culture was positive for staph -IV vancomycin (4) Cellulitis of upper back excluding scapular region Current Visit: Yes Status: Acute Assessment and plan: Pain and swelling diminished -Continue Vancomycin (5) Tobacco abuse Current Visit: Yes Status: Chronic Assessment and plan: Continue nicotine transdermal patch. - Subjective Interval history: Patient seen and examined at bedside this morning. States that he is feeling much better. POD #2 abscess drainage. States that he is no longer feeling "under the weather." Patient is resting comfortablin in bed and has no complaints at this time. - Constitutional Vitals: Temp Pulse Resp BP Pulse Ox 97.7 F 86 15 110/57 96 11/29/17 03:30 11/29/17 03:30 11/29/17 03:30 11/29/17 03:30 11/29/17 03:30 General appearance: Present: mild distress, A&O X 3, answers questions appropriately - Head Head exam: Present: atraumatic, normocephalic - Eye Eye exam: Present: PERRL, conjuntiva pink, sclera anicteric Pupils: Present: PERRL - Neck Neck exam general surgery: Present: supple, trachea midline. Absent: lymphadenopathy - Respiratory Respiratory exam: Present: CTAB. Absent: accessory muscle use, rales, rhonchi, wheezes - Cardiovascular Cardiovascular exam: Present: RRR, +S1, +S2. Absent: diastolic murmur, gallop, rubs, systolic murmur - GI/Abdominal GI/Abdominal exam: Present: normal bowel sounds, soft, no peritoneal signs. Absent: distended, tenderness - Extremities Exam Extremities exam: Present: warm, radial pulses palpable and symmetrical. Absent : calf tenderness, cyanotic, pedal edema - Neurological Exam Neurological exam: Present: CN II-XII intact, oriented X3, no focal deficits. Absent: pronater drift, facial droop, speech deficit - Skin Skin exam: Present: dry, intact Internal Medicine: Result - Labs CBC & Chem 7: 11/28/17 05:05 11/27/17 05:00 - VTE Documentation of Mechanical Device: Intermittent pneumatic compression device Consult Discharge Plan - Plan Referrals: Conner Pappas MD [Non-Partnered Physician] - <Carlos Casillas - Last Filed: 11/29/17 17:33> Date of Encounter: 11/29/17 - Constitutional Vitals: Temp Pulse Resp BP Pulse Ox 98.3 F 85 17 137/81 97 11/29/17 14:55 11/29/17 14:55 11/29/17 14:55 11/29/17 14:55 11/29/17 14:55 Internal Medicine: Result - Labs CBC & Chem 7: 11/28/17 05:05 11/27/17 05:00 - Attending Attestation I examined this patient and my medical decision-making was reviewed with the Resident Physician. I agree with the documented findings, disposition and treatment plan as described except to the extent set forth below. He has resolved the sepsis, awaiting ID of the staph bacteria. Once the identification has been complete and surgery is okay, he can be discharged. He is no longer on the fentanyl, this is a correction from the resident note. This is Dr. Marc Casillas
[2017-11-29] MEDS: Nicotine 21 MG PATCH.TD24 TD SCH (09:12)
--- NOTE | 2017-11-29 14:07 | General Surgery Progress Note ---
Date of Encounter: 11/29/17 Time of Encounter: 13:35 Subjective Narrative: General Surgery = POD #2 Patient seated at bedside; feeling better though still complaining of operative site pain/tenderness Patient remains afebrile, 97.9, pulse 87, respirations 16, blood pressure 149 /79. Wound upper posterior thorax examined. Packing removed. Persistent induration, erythema noted right lateral portion of the wound. No elicited purulent drainage. Wound redressed with dry sterile gauze. Impression: MRSA abscess or posterior thorax Plan: Begin wound irrigations with half-strength hydrogen peroxide Monitor wound; if there is evidence of progression, patient may require examination under anesthesia with additional incision and drainage. Objective Vital Signs - Last 8 Hours Temp Pulse Resp BP Pulse Ox 11/29/17 06:55 97.9 F 87 16 149/79 97 Intake and Output 11/28/17 11/29/17 11/29/17 23:59 07:59 15:59 Intake Total 450 / 450 250 / 250 610 / 610 Output Total 575 / 575 375 / 375 175 / 175 Balance -125 / -125 -125 / -125 435 / 435 Intake: IV Fluids 250 / 250 250 / 250 250 / 250 Vancocin 1,250 MG In 0.9 % 250 / 250 250 / 250 250 / 250 Sodium Chloride 250 ML @ 166. 667 mls/hr IVPB Q8H [id number] Rx#: [id number] Oral 200 / 200 0 / 0 360 / 360 Output: Urine 575 / 575 375 / 375 175 / 175 Other: Meal Lunch Percent of Meal Consumed 25% Weight 89.4 kg Patient Weight 11/29/17 23:59 Weight 89.4 kg - Labs 11/28/17 05:05 11/27/17 05:00 - VTE Documentation of Mechanical Device: Intermittent pneumatic compression device Consult Discharge Plan - Plan Referrals: Conner Pappas MD [Non-Partnered Physician] -
[2017-11-30] MEDS: *HR* HYDROcodone/Acet 5/325 mg TABLET PO PRN ×3 (04:39→21:25)
[2017-11-30] MEDS: Nicotine 21 MG PATCH.TD24 TD SCH (08:40)
--- NOTE | 2017-11-30 11:57 | Internal Med Progress Note ---
Date of Encounter: 11/30/17 Time of Encounter: 11:55 - Assessment and plan (1) Cellulitis of upper back excluding scapular region Current Visit: Yes Status: Acute Assessment and plan: Cellulitis and abscess of the upper back status post incision and drainage and debridement by surgery visit postop day #3 patient is on vancomycin and Zosyn clinically doing well (2) Sepsis Current Visit: Yes Status: Acute Assessment and plan: Vancomycin and Zosyn patient is afebrile no fever or chills heart rate is normal lactic acid is normal Qualifiers: Sepsis type: sepsis due to unspecified organism Qualified Code(s): A41.9 - Sepsis, unspecified organism (3) Abscess Current Visit: Yes Status: Acute Assessment and plan: Status post drainage and debridement clinically doing well (4) Tobacco abuse Current Visit: Yes Status: Chronic Assessment and plan: Chronic will continue to encourage to stop smoking (5) Bacteremia Current Visit: Yes Status: Acute - Subjective Interval history: Patient with history of multiple skin abscesses admitted with cellulitis and abscess of the upper back. Underwent incision and drainage and debridement by surgery this is postop day #3 patient doing well no fever or chills white count still elevated at 18.7 on Vanco and Zosyn blood cultures also growing staph - Constitutional Vitals: Temp Pulse Resp BP Pulse Ox 98.0 F 82 18 141/88 98 11/30/17 10:01 11/30/17 10:01 11/30/17 10:01 11/30/17 10:01 11/30/17 10:01 General appearance: Present: mild distress, A&O X 3, answers questions appropriately - Eye Eye exam: Present: PERRL, conjuntiva pink, sclera anicteric Pupils: Present: PERRL - Neck Neck exam general surgery: Present: supple, trachea midline. Absent: lymphadenopathy - Respiratory Respiratory exam: Present: CTAB. Absent: accessory muscle use, rales, rhonchi, wheezes - Cardiovascular Cardiovascular exam: Present: RRR, +S1, +S2. Absent: diastolic murmur, gallop, rubs, systolic murmur - Back Exam Additional comments: dreesing intact Internal Medicine: Result - Labs CBC & Chem 7: 11/28/17 05:05 11/27/17 05:00 - VTE Documentation of Mechanical Device: Intermittent pneumatic compression device Consult Discharge Plan - Plan Referrals: Conner Pappas MD [Non-Partnered Physician] -
[2017-11-30 12:29] LABS: Basophils # 0.1 K/mcL (0.0-0.2); Basophils % 0.7 %; Eosinophils # 0.3 K/mcL (0.0-0.6); Eosinophils % 2.9 %; Hematocrit 36.5 % (37.5-50.1); Immature Granulocytes % 3.3 % (0-4); Lymphocytes # 1.7 K/mcL (0.6-4.6); Lymphocytes % 19.7 %; Mean Corpuscular HGB Conc 32.9 g/dL (31.6-35.5); Mean Corpuscular Hemoglobin 30.2 pg (28.0-33.3); Mean Corpuscular Volume 91.9 fL (83.0-100.0); Mean Platelet Volume 11.7 fL (9.4-12.4); Monocytes # 0.6 K/mcL (0.0-1.3); Monocytes % 7.3 %; Neutrophils # 5.6 K/mcL (1.6-8.9); Platelet Count 205 K/mcL (140-400); Red Blood Count 3.97 M/mcL (4.19-5.50); Red Cell Distribution Width 12.9 % (11.5-14.5); Segmented Neutrophils % 66.1 %
--- NOTE | 2017-11-30 16:15 | General Surgery Progress Note ---
Date of Encounter: 11/30/17 Time of Encounter: 16:15 Subjective Patient reports: feels better Narrative: General Surgery - POD #3 Patient feeling better; complaining of less wound pain Patient is afebrile, pulse 76-82, respirations 18, blood pressure 141/88 Wound responding to twice a day irrigations and dressing changes - necrotic tissue diminished; surrounding erythema reduced Labs: Leukocytosis resolved, white count 8.5; hemoglobin stable at 12.0; hematocrit 36.5; differential within normal limits with resolution of the neutrophilia. Impression: Postoperative day #3, status post I&D abscess upper posterior thorax. Cultures demonstrate MRSA. Patient responding to treatment Objective Vital Signs - Last 8 Hours Temp Pulse Resp BP Pulse Ox 11/30/17 10:01 98.0 F 82 18 141/88 98 Intake and Output 11/30/17 11/30/17 11/30/17 07:59 15:59 23:59 Intake Total 250 / 250 1210 / 1210 Output Total 450 / 450 0 / 0 Balance -200 / -200 1210 / 1210 Intake: IV Fluids 250 / 250 250 / 250 Vancocin 1,250 MG In 0.9 % 250 / 250 250 / 250 Sodium Chloride 250 ML @ 166. 667 mls/hr IVPB Q8H [facility] Rx#: [id number] Oral 0 / 0 960 / 960 Output: Urine 450 / 450 0 / 0 Other: Meal Lunch Percent of Meal Consumed 100% Weight 89.267 kg Patient Weight 11/30/17 23:59 Weight 89.267 kg - Labs 11/30/17 12:07 11/27/17 05:00 - VTE Documentation of Mechanical Device: Intermittent pneumatic compression device Consult Discharge Plan - Plan Referrals: Conner Pappas MD [Non-Partnered Physician] -
[2017-12-01 06:03] LABS: BUN/Creatinine Ratio 18 (6-26); Blood Urea Nitrogen 12 mg/dL (6-20); Calcium 8.4 mg/dL (8.6-10.3); Carbon Dioxide 26 mEq/L (23-29); Chloride 104 mEq/L (98-107); Glucose 100 mg/dL (70-105); Osmolality,Calculated 282 (280-300); Sodium 136 mEq/L (136-145); eGFR For African Americans > 60 (> 60); eGFR For Non-African Americans > 60 (> 60)
[2017-12-01] MEDS: Nicotine 21 MG PATCH.TD24 TD SCH (09:30)
[2017-12-01] MEDS: *HR* HYDROcodone/Acet 5/325 mg TABLET PO PRN ×2 (09:31→17:24)
--- NOTE | 2017-12-01 10:46 | Internal Med Progress Note ---
Date of Encounter: 12/01/17 Time of Encounter: 10:44 - Assessment and plan (1) Cellulitis of upper back excluding scapular region Current Visit: Yes Status: Acute Assessment and plan: Cellulitis and deep wound on his back dressing change by Dr. Montes possible to patient back to the operating room tomorrow for repeat debridement (2) Sepsis Current Visit: Yes Status: Acute Assessment and plan: Patient clinically responded to vancomycin IV Qualifiers: Sepsis type: sepsis due to unspecified organism Qualified Code(s): A41.9 - Sepsis, unspecified organism (3) Abscess Current Visit: Yes Status: Acute Assessment and plan: Status post debridement and continued IV vancomycin (4) Tobacco abuse Current Visit: Yes Status: Chronic Assessment and plan: Chronic (5) Bacteremia Current Visit: Yes Status: Acute Assessment and plan: blood culture so far has been negative - Subjective Interval history: Patient with history of multiple skin abscesses admitted with cellulitis and abscess of the upper back. Underwent incision and drainage and debridement by surgery this is postop day #3 patient doing well no fever or chills white count still elevated at 18.7 on Vanco and Zosyn blood cultures also growing staph Patient seen and his son, Dr. sending it to [facility] patient has a deep wound which apparently is healing will continue the vancomycin IV for now and wound care card cutter and possibility patient back to the operating room tomorrow for debridement - Constitutional Vitals: Temp Pulse Resp BP Pulse Ox 97.9 F 78 14 134/88 96 12/01/17 06:35 12/01/17 06:35 12/01/17 06:35 12/01/17 06:35 12/01/17 06:35 General appearance: Present: mild distress, A&O X 3, answers questions appropriately - Eye Eye exam: Present: PERRL, conjuntiva pink, sclera anicteric Pupils: Present: PERRL - Neck Neck exam general surgery: Present: supple, trachea midline. Absent: lymphadenopathy - Respiratory Respiratory exam: Present: CTAB. Absent: accessory muscle use, rales, rhonchi, wheezes - Cardiovascular Cardiovascular exam: Present: RRR, +S1, +S2. Absent: diastolic murmur, gallop, rubs, systolic murmur Internal Medicine: Result - Labs CBC & Chem 7: 11/30/17 12:07 12/01/17 05:04 Labs: Short CBC 11/30/17 Range/Units 12:07 WBC 8.5 D (4.3-11.1) K/mcL Hgb 12.0 L (12.9-16.9) g/dL Hct 36.5 L (37.5-50.1) % Plt Count 205 (140-400) K/mcL Neutrophils # 5.6 (1.6-8.9) K/mcL BMP 12/01/17 05:04 Sodium 136 Potassium 4.0 Chloride 104 Carbon Dioxide 26 BUN 12 Creatinine 0.65 L Glucose 100 Calcium 8.4 L - VTE Documentation of Mechanical Device: Intermittent pneumatic compression device Consult Discharge Plan - Plan Referrals: Conner Pappas MD [Non-Partnered Physician] -
--- NOTE | 2017-12-01 10:56 | General Surgery Progress Note ---
Date of Encounter: 12/01/17 Time of Encounter: 10:40 Subjective Patient reports: no new complaints Narrative: General Surgery - POD #4 Patient doing well; placing no complaints Afebrile, pulse 78, respirations 14, blood pressure 134/88 Abscess posterior thorax continues to improve - erythema and induration persists right lateral wall of the I&D site; this area also slightly tender. Fibrinous exudate at the wound edges but no obvious pus encountered. Impression: MRSA abscess upper posterior thorax; postoperative day #4 status post incision, drainage, and debridement It appears likely that the patient will require additional debridement to speed his recovery and discharged from the hospital This debridement will be completed tomorrow. I have discussed this with the patient and he is willing to proceed Plan: Debridement of the abscess posterior upper thorax in a.m. Nothing by mouth after midnight except for medications Risks of the procedure include hemorrhage, infection, continued infection and failure to heal Consent has been obtained. Objective Vital Signs - Last 8 Hours Temp Pulse Resp BP Pulse Ox 12/01/17 06:35 97.9 F 78 14 134/88 96 12/01/17 03:58 98.1 F 79 14 129/77 97 Intake and Output 11/30/17 12/01/17 12/01/17 23:59 07:59 15:59 Intake Total 250 / 250 250 / 250 240 / 240 Output Total 1700 / 1700 1100 / 1100 600 / 600 Balance -1450 / -1450 -850 / -850 -360 / -360 Intake: IV Fluids 250 / 250 250 / 250 Vancocin 1,250 MG In 0.9 % 250 / 250 250 / 250 Sodium Chloride 250 ML @ 166. 667 mls/hr IVPB Q8H [facility] Rx#: [id number] Oral 0 / 0 0 / 0 240 / 240 Output: Urine 1700 / 1700 1100 / 1100 600 / 600 Other: Meal Breakfast Percent of Meal Consumed 100% Weight 89.131 kg Blood Glucose* 137 Patient Weight 12/01/17 23:59 Weight 89.131 kg - Labs 11/30/17 12:07 12/01/17 05:04 Diabetes panel 12/01/17 Range/Units 05:04 Sodium 136 (136-145) mEq/L Potassium 4.0 (3.5-5.1) mEq/L Chloride 104 (98-107) mEq/L Carbon Dioxide 26 (23-29) mEq/L BUN 12 (6-20) mg/dL Creatinine 0.65 L (0.70-1.30) mg/dL Glucose 100 (70-105) mg/dL Calcium 8.4 L (8.6-10.3) mg/dL Calcium panel 12/01/17 Range/Units 05:04 Calcium 8.4 L (8.6-10.3) mg/dL Pituitary panel 12/01/17 Range/Units 05:04 Sodium 136 (136-145) mEq/L Potassium 4.0 (3.5-5.1) mEq/L Chloride 104 (98-107) mEq/L Carbon Dioxide 26 (23-29) mEq/L BUN 12 (6-20) mg/dL Creatinine 0.65 L (0.70-1.30) mg/dL Glucose 100 (70-105) mg/dL Calcium 8.4 L (8.6-10.3) mg/dL Adrenal panel 12/01/17 Range/Units 05:04 Sodium 136 (136-145) mEq/L Potassium 4.0 (3.5-5.1) mEq/L Chloride 104 (98-107) mEq/L Carbon Dioxide 26 (23-29) mEq/L BUN 12 (6-20) mg/dL Creatinine 0.65 L (0.70-1.30) mg/dL Glucose 100 (70-105) mg/dL Calcium 8.4 L (8.6-10.3) mg/dL - VTE Documentation of Mechanical Device: Intermittent pneumatic compression device Consult Discharge Plan - Plan Referrals: Conner Pappas MD [Non-Partnered Physician] -
[2017-12-02 01:16] LABS: Basophils # 0.2 K/mcL (0.0-0.2); Basophils % 1.5 %; Eosinophils # 0.4 K/mcL (0.0-0.6); Eosinophils % 3.3 %; Hematocrit 40.2 % (37.5-50.1); Hemoglobin 13.3 g/dL (12.9-16.9); Immature Granulocytes % 10.5 % (0-4); Immature Platelets 8.8 % (1.1-6.1); Lymphocytes # 2.3 K/mcL (0.6-4.6); Lymphocytes % 17.5 %; Mean Corpuscular HGB Conc 33.1 g/dL (31.6-35.5); Mean Corpuscular Volume 90.5 fL (83.0-100.0); Mean Platelet Volume 11.5 fL (9.4-12.4); Monocytes # 0.9 K/mcL (0.0-1.3); Monocytes % 7.2 %; Neutrophils # 7.7 K/mcL (1.6-8.9); Platelet Count 252 K/mcL (140-400); Red Blood Count 4.44 M/mcL (4.19-5.50); Red Cell Distribution Width 12.5 % (11.5-14.5)
[2017-12-02 02:15] LABS: Platelet Estimate Normal (Normal)
[2017-12-02] MEDS ORDERED: *HR* Propofol 200 MG/20 ML VIAL IVP ONE (07:17)
[2017-12-02] MEDS ORDERED: *HR* FentaNYL (PF) 100 MCG/2 ML VIAL ONE (07:17)
[2017-12-02] MEDS ORDERED: Lidocaine -MPF 2% 2 ML VIAL ONE ×2 (07:17→08:24)
[2017-12-02] MEDS ORDERED: *HR* Midazolam HCl 2 MG/2 ML VIAL ONE (07:17)
--- NOTE | 2017-12-02 07:34 | Anesthesia Evaluation PreOp ---
Date of Encounter: 12/02/17 Time of Encounter: 07:32 - Past History Planned Operation: I&D abcess - thorax Cardiac History: HTN (no longer medicated) Pulmonary History: Smoker (1ppd x 24yrs) REGION MANAGER History: Denies Any Significant HX Other Medical History: Denies Any Significant HX, Other (This hospitalization: + SIRS, +MRSA oin blood) Anesthesia History: Past Anesthesia (R-ankle, Appy, T&A, I&D thorax 11/28/2017) Alcohol Use: none Drug use: none Medications and Allergies No Known Home Drugs 11/25/17 [History] 3 Allergy/AdvReac Type Severity Reaction Status Date / Time No Known Allergies Allergy Verified 11/25/17 16:48 Anesthesia Results - Labs 12/02/17 00:58 12/01/17 05:04 Laboratory Results WBC 12.9 K/mcL (4.3-11.1) H D 12/02/17 00:58 RBC 4.44 M/mcL (4.19-5.50) 12/02/17 00:58 Hgb 13.3 g/dL (12.9-16.9) 12/02/17 00:58 Hct 40.2 % (37.5-50.1) 12/02/17 00:58 MCV 90.5 fL (83.0-100.0) 12/02/17 00:58 MCH 30.0 pg (28.0-33.3) 12/02/17 00:58 MCHC 33.1 g/dL (31.6-35.5) 12/02/17 00:58 RDW 12.5 % (11.5-14.5) 12/02/17 00:58 Plt Count 252 K/mcL (140-400) 12/02/17 00:58 MPV 11.5 fL (9.4-12.4) 12/02/17 00:58 Immature Gran % 10.5 % (0-4) H 12/02/17 00:58 Seg Neutrophils % 60.0 % 12/02/17 00:58 Lymphocytes % 17.5 % 12/02/17 00:58 Monocytes % 7.2 % 12/02/17 00:58 Eosinophils % 3.3 % 12/02/17 00:58 Basophils % 1.5 % 12/02/17 00:58 Neutrophils # 7.7 K/mcL (1.6-8.9) 12/02/17 00:58 Lymphocytes # 2.3 K/mcL (0.6-4.6) 12/02/17 00:58 Monocytes # 0.9 K/mcL (0.0-1.3) 12/02/17 00:58 Eosinophils # 0.4 K/mcL (0.0-0.6) 12/02/17 00:58 Basophils # 0.2 K/mcL (0.0-0.2) 12/02/17 00:58 Platelet Estimate Normal (Normal) 12/02/17 00:58 Immature Plt Fraction 8.8 % (1.1-6.1) H 12/02/17 00:58 Sodium 136 mEq/L (136-145) 12/01/17 05:04 Potassium 4.0 mEq/L (3.5-5.1) 12/01/17 05:04 Chloride 104 mEq/L (98-107) 12/01/17 05:04 Carbon Dioxide 26 mEq/L (23-29) 12/01/17 05:04 BUN 12 mg/dL (6-20) 12/01/17 05:04 Creatinine 0.65 mg/dL (0.70-1.30) L 12/01/17 05:04 Est GFR ( Amer) > 60 (> 60) 12/01/17 05:04 Est GFR (Non-Af Amer) > 60 (> 60) 12/01/17 05:04 BUN/Creatinine Ratio 18 (6-26) 12/01/17 05:04 Glucose 100 mg/dL (70-105) 12/01/17 05:04 POC Glucose 91 (58-89) H 11/27/17 11:09 Est Mean Plasma Glucose 103 mg/dl 11/26/17 05:00 Hemoglobin A1c 5.2 % (-5.6) 11/26/17 05:00 Calculated Osmolality 282 (280-300) 12/01/17 05:04 Lactic Acid 0.9 mmol/L (0.5-2.2) 11/26/17 05:00 Calcium 8.4 mg/dL (8.6-10.3) L 12/01/17 05:04 Magnesium 1.8 mg/dL (1.6-2.6) 11/26/17 05:00 Vancomycin Trough 17.1 mcg/mL (10-20) 12/02/17 00:58 Anesthesia Exam Vital Signs Temp Pulse Resp BP Pulse Ox 12/02/17 05:44 98.6 F 75 16 118/70 97 12/01/17 21:20 98.5 F 97 17 149/89 96 12/01/17 15:35 98.3 F 84 14 140/87 97 12/01/17 10:54 97.6 F 86 17 143/79 96 Intake and Output 12/01/17 12/01/17 12/02/17 15:59 23:59 07:59 Intake Total 970 / 970 490 / 490 0 / 0 Output Total 1900 / 1900 700 / 700 1000 / 1000 Balance -930 / -930 -210 / -210 -1000 / -1000 Intake: IV Fluids 250 / 250 250 / 250 Vancocin 1,250 MG In 0.9 % 250 / 250 250 / 250 Sodium Chloride 250 ML @ 166. 667 mls/hr IVPB Q8H [facility] Rx#: [id number] Oral 720 / 720 240 / 240 0 / 0 Output: Urine 1900 / 1900 700 / 700 1000 / 1000 Other: Meal Lunch Dinner Percent of Meal Consumed 100% 100% Height: 5'6" Weight: 196# BMI = 31.7 NPO (# of Hours): MNoc - HEENT Pupil (Motor): Pupils equal, EOMI Mallampati: III Teeth: Poor dentition (v.poor dentition with multipl nubs rottoing at gumline & several others missing) Oral Opening: Greater than 3 - REGION MANAGER LOC: Oriented REGION MANAGER Motor: Normal RUE, Normal LUE, Normal RLE, Normal LLE, Normal Face REGION MANAGER Sensory: Normal: RUE, LUE, RLE, LLE, Face - Cardiac Rhythm: Regular Murmur: None - Pulmonary Breath Sounds: bilateral Clear Respiratory Effort: Symmetrical Anesthesia Assess/Plan ASA Score: 3 Modified Kathy Scale for Level of Consciousness: Cooperative, oriented, and tranquil Anesthetic Plan: General Monitoring Plan: Standard Monitors Recovery Plan: PACU Anes Supervising Prov Stmt: Pt seen/evaluated, R&B Discussed, questions answered and consent obtained. Christopher Miller MD
[2017-12-02] MEDS ORDERED: Metoclopramide 10 MG/2 ML VIAL ONE (07:45)
[2017-12-02] MEDS ORDERED: Acetaminophen IV 1,000 MG/100 ML INFUS..BTL ONE (07:45)
[2017-12-02] MEDS ORDERED: Famotidine 20 MG/2 ML VIAL ONE (07:45)
[2017-12-02] MEDS ORDERED: Ketamine *HR* 500 MG/10 ML MDV ONE (07:45)
[2017-12-02] MEDS ORDERED: Albuterol 2.5 MG/3 ML NEBULIZER ONE (07:50)
[2017-12-02] MEDS ORDERED: Ketorolac 30 MG/ML VIAL ONE (08:23)
[2017-12-02] MEDS ORDERED: Dexamethasone 4 MG/ML VIAL ONE (08:24)
[2017-12-02] MEDS ORDERED: Ondansetron 4 MG/2 ML VIAL ONE (08:24)
--- NOTE | 2017-12-02 08:50 | Operative Note ---
Date of procedure: 12/02/17 Pre-op diagnosis: abscess upper posterior thorax due to MRSA Post-op diagnosis: same Procedure: incision and debridement abscess upper posterior thorax Complications: none apparent Anesthesia: other (laryngomask airway) Surgeon: Conner Pappas Was there an sales and marketing assistant present: No Estimated blood loss (cc): 30 IV fluids (cc): 900 Specimen: none Condition: stable Disposition: PACU Procedure in Detail: Brief history: 41 yo with large abscess posterior thorax due to MRSA returns to the operating for incision and debridement of this abscess. There is evidence of extension to the right side with skin thickening, induration, and purulent drainage from this area. Previous I&D completed 11/27/17, demonstrates significant improvement. Technique: The patient was brought to the operating room where he was placed supine on the operating room table. The patient was appropriately identified as to person and procedure. The accuracy of this information was confirmed by the patient and the procedure team. The surgical consent was reviewed and found to be accurate. The patient was then anesthetized using a laryngomask airway under the supervision of Dr. Shana Hernández. When the airway secured the patient was placed in the left lateral decubitus position. The abscess cavity was prepped and draped in the usual sterile fashion. The right cephalad wall of the cyst cavity demonstrated persistent induration, thickening, and purulent drainage. A portion of this wall was excised with a #10 scalpel. His considerable hyperemia and bleeding from this resection. Bleeding points were controlled with electrocautery. In the initial abscess cavity some fibrinous exited 8 was sharply dissected. The entire wound was irrigated with warm sterile saline using a pulsatile irrigation system (Pulsavac-PLus) and 3 L sterile saline. Additional hemostasis was achieved with electrocautery. The wound was packed with 1 inch iodoform gauze, followed by 4 x 4 gauze and Medipore tape. The patient was taken to recovery in stable condition needle, sponge, and instrument counts were correct at the close of the case.
[2017-12-02] MEDS ORDERED: *HR* Promethazine 25 MG/ML VIAL IVP PRN (09:01)
[2017-12-02] MEDS ORDERED: *HR* HYDROmorphone 2 MG TABLET PO PRN (09:01)
[2017-12-02] MEDS ORDERED: MORPHINE SUL Oral CONC 10 MG/0.5 ML ORAL.SYG SL PRN (09:01)
[2017-12-02] MEDS ORDERED: *HR* Labetalol 20 MG/4 ML SYRINGE IVP PRN (09:01)
[2017-12-02] MEDS ORDERED: *HR* HYDROcodone/Acet 7.5/325 mg TABLET PO PRN (09:01)
[2017-12-02] MEDS ORDERED: *HR* OxyCODONE Immed Rel 5 MG TABLET PO PRN (09:01)
[2017-12-02] MEDS ORDERED: Naloxone 0.4 MG/ML INJ IVP PRN (09:35)
[2017-12-02] MEDS ORDERED: Acetaminophen 325 MG TABLET PO PRN (09:35)
[2017-12-02] MEDS ORDERED: MOM Conc 10 ML UD.LIQ PO PRN (09:35)
[2017-12-02] MEDS ORDERED: Ipratropium/Albuterol Neb 3 ML IH PRN (09:35)
[2017-12-02] MEDS ORDERED: Ondansetron 4 MG/2 ML VIAL IVP PRN (09:35)
[2017-12-02] MEDS: Nicotine 14 MG PATCH.TD24 TD SCH (10:27)
--- NOTE | 2017-12-02 10:52 | Anesthesia Evaluation Post Op ---
Date of Encounter: 12/02/17 Time of Encounter: 09:00 - Vital Signs Vital Signs: Vital Signs/O2 Sat/Glucose, Most Current Temp Pulse Resp BP Pulse Ox 12/02/17 09:24 97.6 F 82 16 127/82 96 12/02/17 09:14 83 16 134/86 99 12/02/17 09:04 77 16 129/81 95 12/02/17 08:54 97.1 F L 94 20 132/85 97 12/02/17 07:54 16 118/70 97 - Lungs Lungs: Clear Ascult./Percussion - Airway Airway: Non-obstructed - Cardiovascular Regular Rate - Mental Status Mental Status: Asleep with brisk response to light stimulation - Pain Pain Scale: 0 Pain Scale used: Numeric (1 - 10) - Nausea Vomiting Nausea Vomiting: Not Present - Hydration Hydration: Ice chips, Has not voided - Discharge PostOp Status: Transfer Patient to floor Anes Supervising Prov Stmt: Pt seen/evaluated, VSS and pt has met criteria for discharge to floor. - MD Angela
--- NOTE | 2017-12-02 14:02 | Internal Med Progress Note ---
Date of Encounter: 12/02/17 Time of Encounter: 13:58 - Assessment and plan (1) Cellulitis of upper back excluding scapular region Current Visit: Yes Status: Acute Assessment and plan: Cellulitis and deep abscess, had 2nd time I&D on 12/02 wound coulture growing MRAS, continue IV vancomycin (2) Sepsis Current Visit: Yes Status: Acute Assessment and plan: Patient clinically responded to vancomycin IV, sepsis resolved Qualifiers: Sepsis type: sepsis due to unspecified organism Qualified Code(s): A41.9 - Sepsis, unspecified organism (3) Tobacco abuse Current Visit: Yes Status: Chronic Assessment and plan: Chronic - Time Spent With Patient 25 - 35 minutes - Subjective Interval history: Patient primary and secondary time of debridement. Pain is well controlled as 3 out of 10. He is afebrile. wound growing MRSA, contin eu IV vancomycin for now - Constitutional Vitals: Temp Pulse Resp BP Pulse Ox 98.0 F 90 14 121/69 94 12/02/17 12:05 12/02/17 12:05 12/02/17 12:05 12/02/17 12:05 12/02/17 12:05 General appearance: Present: mild distress, A&O X 3, answers questions appropriately Exam: CONSTITUTIONAL: patient appears as an age appropriate male in no acute distress. EYES Clear sclerae, bilateral pupils are equal, reactive to light. EMOI. RESPIRATORY: No accessory muscle use, bilateral clear to auscultation, no wheezing, no crackles/rales. CARDIOVASCULAR: Regular heart rate, normal S1 and S2, no murmurs GASTROINTESTINAL: bowel sounds present, soft, no tenderness. MUSCULOSKELETAL: Joints in normal range of motion, no clubbing, no edema, no cyanosis. Bilateral peripheral pulses 2+. NEUROLOGIC: CN II to XII are grossly intact, no focal neurological deficit. Internal Medicine: Result - Labs CBC & Chem 7: 12/02/17 00:58 12/01/17 05:04 Labs: Short CBC 12/02/17 Range/Units 00:58 WBC 12.9 H D (4.3-11.1) K/mcL Hgb 13.3 (12.9-16.9) g/dL Hct 40.2 (37.5-50.1) % Plt Count 252 (140-400) K/mcL Neutrophils # 7.7 (1.6-8.9) K/mcL - VTE Documentation of Mechanical Device: Intermittent pneumatic compression device Consult Discharge Plan - Plan Referrals: Conner Pappas MD [Non-Partnered Physician] -
[2017-12-02] MEDS: *HR* HYDROcodone/Acet 5/325 mg TABLET PO PRN ×2 (15:13→22:22)
[2017-12-03 01:41] LABS: Basophils # 0.1 K/mcL (0.0-0.2); Basophils % 0.7 %; Eosinophils % 0.2 %; Hematocrit 39.6 % (37.5-50.1); Hemoglobin 13.2 g/dL (12.9-16.9); Immature Granulocytes % 6.3 % (0-4); Lymphocytes # 1.6 K/mcL (0.6-4.6); Lymphocytes % 8.3 %; Mean Corpuscular HGB Conc 33.3 g/dL (31.6-35.5); Mean Corpuscular Hemoglobin 30.1 pg (28.0-33.3); Mean Corpuscular Volume 90.2 fL (83.0-100.0); Mean Platelet Volume 11.5 fL (9.4-12.4); Monocytes # 1.1 K/mcL (0.0-1.3); Monocytes % 5.5 %; Neutrophils # 15.4 K/mcL (1.6-8.9); Platelet Count 291 K/mcL (140-400); Red Blood Count 4.39 M/mcL (4.19-5.50); Red Cell Distribution Width 12.4 % (11.5-14.5)
[2017-12-03 02:44] LABS: Platelet Estimate Normal (Normal)
[2017-12-03] MEDS: Nicotine 14 MG PATCH.TD24 TD SCH (09:38)
[2017-12-03] MEDS: *HR* HYDROcodone/Acet 5/325 mg TABLET PO PRN ×2 (09:38→18:58)
--- NOTE | 2017-12-03 11:21 | Internal Med Progress Note ---
Date of Encounter: 12/03/17 Time of Encounter: 11:18 - Assessment and plan (1) Cellulitis of upper back excluding scapular region Current Visit: Yes Status: Acute Assessment and plan: Cellulitis and deep abscess, had 2nd time I&D on 12/02 , positive blood culture on November 25 with MRSA wound coulture growing MRAS, continue IV vancomycin and Levaquin (2) Sepsis Current Visit: Yes Status: Acute Assessment and plan: Patient clinically responded to vancomycin IV, sepsis resolved Persistent leukocytosis, Levaquin added today Qualifiers: Sepsis type: sepsis due to unspecified organism Qualified Code(s): A41.9 - Sepsis, unspecified organism (3) Tobacco abuse Current Visit: Yes Status: Chronic Assessment and plan: Chronic - Time Spent With Patient 25 - 35 minutes - Subjective Interval history: Patient primary and secondary time of debridement. Pain is well controlled as 3 out of 10. He is afebrile. wound growing MRSA, continnue IV vancomycin, add levaquin to cover gram negative and anerobic, his abscess is very deep Patient is doing okay, afebrile. WBC at 19.5,, he had to one set of blood culture positive MRSA on 11/25 will add levaquin contineu Vanmcomycin and levaquin - Constitutional Vitals: Temp Pulse Resp BP Pulse Ox 97.5 F L 95 18 117/64 97 12/03/17 06:55 12/03/17 06:55 12/03/17 06:55 12/03/17 06:55 12/03/17 06:55 General appearance: Present: mild distress, A&O X 3, answers questions appropriately Exam: CONSTITUTIONAL: patient appears as an age appropriate male in no acute distress. EYES Clear sclerae, bilateral pupils are equal, reactive to light. EMOI. RESPIRATORY: No accessory muscle use, bilateral clear to auscultation, no wheezing, no crackles/rales. CARDIOVASCULAR: Regular heart rate, normal S1 and S2, no murmurs GASTROINTESTINAL: bowel sounds present, soft, no tenderness. MUSCULOSKELETAL: Joints in normal range of motion, no clubbing, no edema, no cyanosis. Bilateral peripheral pulses 2+. NEUROLOGIC: CN II to XII are grossly intact, no focal neurological deficit. Internal Medicine: Result - Labs CBC & Chem 7: 12/03/17 01:31 12/01/17 05:04 Labs: Short CBC 12/03/17 Range/Units 01:31 WBC 19.5 H D (4.3-11.1) K/mcL Hgb 13.2 (12.9-16.9) g/dL Hct 39.6 (37.5-50.1) % Plt Count 291 (140-400) K/mcL Neutrophils # 15.4 H (1.6-8.9) K/mcL - VTE Documentation of Mechanical Device: Intermittent pneumatic compression device Consult Discharge Plan - Plan Referrals: Conner Pappas MD [Non-Partnered Physician] -
--- NOTE | 2017-12-03 12:48 | General Surgery Progress Note ---
Date of Encounter: 12/03/17 Time of Encounter: 12:44 Subjective Patient reports: no new complaints Narrative: General Surgery - POD #1 s/p repeat I&D with excision right lateral abscess wall and debridement fibrinous exudate Initial I&D 11/27/2017 Patient feeling well; voicing no complaints; denies significant pain related to the recent therapy is persistent abscess upper posterior thorax Afebrile, vital signs stable with pulse 86, respirations 18, blood pressure 146/70;; transient tachycardia noted through the night The wound, or posterior thorax was inspected and dressing changed. A portion of the packing was removed. There is no purulent drainage The wound edges are clean, and nontender Laboratories: White count has increased to 19.5; neutrophilia increased to 15.4 % likely response to surgery. Impression: MRSA abscess upper posterior thorax. Status post repeat debridement yesterday Patient feeling well today, voicing no complaints. Plan: Continue IV antibiotics Repeat CBC in a.m. Anticipate removing the rest of the packing tomorrow. Objective Vital Signs - Last 8 Hours Temp Pulse Resp BP Pulse Ox 12/03/17 11:51 97.5 F L 86 18 146/70 95 12/03/17 06:55 97.5 F L 95 18 117/64 97 12/03/17 05:12 98.0 F 102 16 140/85 98 Intake and Output 12/02/17 12/03/17 12/03/17 23:59 07:59 15:59 Intake Total 550 / 550 550 / 550 0 / 0 Output Total 250 / 250 2400 / 2400 Balance 300 / 300 -1850 / -1850 0 / 0 Intake: IV Fluids 250 / 250 250 / 250 Vancocin 1,250 MG In 0.9 % 250 / 250 250 / 250 Sodium Chloride 250 ML @ 166. 667 mls/hr IVPB Q8H [facility] Rx#: [id number] Oral 300 / 300 300 / 300 0 / 0 Output: Urine 250 / 250 2400 / 2400 Other: Meal Dinner Breakfast Percent of Meal Consumed 100% 100% - Labs 12/03/17 01:31 12/01/17 05:04 - VTE Documentation of Mechanical Device: Intermittent pneumatic compression device Consult Discharge Plan - Plan Referrals: Conner Pappas MD [Non-Partnered Physician] -
[2017-12-03] MEDS: Levofloxacin 750 MG/150 ML 750 MG/150 ML BAG IVPB SCH (13:56)
[2017-12-04] MEDS: *HR* HYDROcodone/Acet 5/325 mg TABLET PO PRN (06:45)
[2017-12-04 07:00] LABS: Eosinophils # 0.4 K/mcL (0.0-0.6); Hemoglobin 13.6 g/dL (12.9-16.9); Mean Corpuscular HGB Conc 32.4 g/dL (31.6-35.5); Mean Corpuscular Hemoglobin 29.9 pg (28.0-33.3); Mean Corpuscular Volume 92.3 fL (83.0-100.0); Mean Platelet Volume 11.2 fL (9.4-12.4); Platelet Count 283 K/mcL (140-400); Red Blood Count 4.55 M/mcL (4.19-5.50); Red Cell Distribution Width 12.9 % (11.5-14.5)
[2017-12-04 07:17] LABS: BUN/Creatinine Ratio 16 (6-26); Blood Urea Nitrogen 14 mg/dL (6-20); Calcium 8.6 mg/dL (8.6-10.3); Carbon Dioxide 28 mEq/L (23-29); Chloride 103 mEq/L (98-107); Glucose 99 mg/dL (70-105); Osmolality,Calculated 283 (280-300); Potassium 4.3 mEq/L (3.5-5.1); Sodium 136 mEq/L (136-145); eGFR For African Americans > 60 (> 60); eGFR For Non-African Americans > 60 (> 60)
[2017-12-04] MEDS: Nicotine 14 MG PATCH.TD24 TD SCH (07:49)
[2017-12-04] MEDS: Levofloxacin 750 MG/150 ML 750 MG/150 ML BAG IVPB SCH (07:49)
[2017-12-04 08:28] LABS: Lymphocytes # 3.5 K/mcL (0.6-4.6); Monocytes # 1.3 K/mcL (0.0-1.3); Neutrophils # 5.6 K/mcL (1.6-8.9); Platelet Estimate Normal (Normal)
--- NOTE | 2017-12-04 13:23 | General Surgery Progress Note ---
Date of Encounter: 12/04/17 Time of Encounter: 13:18 Subjective Patient reports: no new complaints Narrative: General Surgery - POD #2 s/p repeat I&D abscess upper posterior thorax Patient voicing no complaints; indicates he is feeling well. Patient remains afebrile hemodynamically stable with pulse 74, respirations 16, blood pressure 135/86 Laboratories: Leukocytosis has again returned to normal, 10.8; hemoglobin 13.6, hematocrit 42.0. Neutrophilia resolved. Electrolytes, BUN, creatinine remained within normal limits Dressing and packing removed; the wound is clean with healthy granulation tissue. Minimal fibrinous exudate. The surrounding erythema is also reduced. Dry gauze dressing applied followed by tape. We will resume twice a day irrigations with hydrogen peroxide and dry gauze dressing. Impression: Satisfactory improvement following second incision and debridement of the abscess upper posterior thorax Placement for continued wound care pending Recommendations: Continue vancomycin for MRSA Resume wound irrigations with half-strength hydroperoxide followed by dry gauze dry gauze dressing Objective Vital Signs - Last 8 Hours Temp Pulse Resp BP Pulse Ox 12/04/17 12:23 97.9 F 74 16 135/86 98 12/04/17 06:36 97.6 F 74 16 117/71 97 Intake and Output 12/03/17 12/04/17 12/04/17 23:59 07:59 15:59 Intake Total 490 / 490 250 / 250 Output Total 1200 / 1200 1200 / 1200 Balance -710 / -710 -950 / -950 Intake: IV Fluids 250 / 250 250 / 250 Vancocin 1,250 MG In 0.9 % 250 / 250 250 / 250 Sodium Chloride 250 ML @ 166. 667 mls/hr IVPB Q8H [facility] Rx#: [id number] Oral 240 / 240 0 / 0 Output: Urine 1200 / 1200 1200 / 1200 Other: Meal Dinner Percent of Meal Consumed 100% Weight 88.995 kg Patient Weight 12/04/17 23:59 Weight 88.995 kg - Labs 12/04/17 06:29 12/04/17 06:29 Diabetes panel 12/04/17 Range/Units 06:29 Sodium 136 (136-145) mEq/L Potassium 4.3 (3.5-5.1) mEq/L Chloride 103 (98-107) mEq/L Carbon Dioxide 28 (23-29) mEq/L BUN 14 (6-20) mg/dL Creatinine 0.85 (0.70-1.30) mg/dL Glucose 99 (70-105) mg/dL Calcium 8.6 (8.6-10.3) mg/dL Calcium panel 12/04/17 Range/Units 06:29 Calcium 8.6 (8.6-10.3) mg/dL Pituitary panel 12/04/17 Range/Units 06:29 Sodium 136 (136-145) mEq/L Potassium 4.3 (3.5-5.1) mEq/L Chloride 103 (98-107) mEq/L Carbon Dioxide 28 (23-29) mEq/L BUN 14 (6-20) mg/dL Creatinine 0.85 (0.70-1.30) mg/dL Glucose 99 (70-105) mg/dL Calcium 8.6 (8.6-10.3) mg/dL Adrenal panel 12/04/17 Range/Units 06:29 Sodium 136 (136-145) mEq/L Potassium 4.3 (3.5-5.1) mEq/L Chloride 103 (98-107) mEq/L Carbon Dioxide 28 (23-29) mEq/L BUN 14 (6-20) mg/dL Creatinine 0.85 (0.70-1.30) mg/dL Glucose 99 (70-105) mg/dL Calcium 8.6 (8.6-10.3) mg/dL - VTE Documentation of Mechanical Device: Intermittent pneumatic compression device Consult Discharge Plan - Plan Referrals: Conner Pappas MD [Non-Partnered Physician] -
--- NOTE | 2017-12-04 17:10 | Internal Med Progress Note ---
Date of Encounter: 12/04/17 Time of Encounter: 11:20 - Assessment and plan (1) Cellulitis of upper back excluding scapular region Current Visit: Yes Status: Acute Assessment and plan: CT chest shows focal pocket of fluid measuring 4.7 x 1.1 cm, could represent an abscess, with surrounding inflammatory changes along the upper back. Surgery has been consulted, underwent incision and drainage twice on November 27 and December 02. Local wound care with packing per surgery recommendations. Vital signs and pain significantly improved. One out of 2 blood cultures, superficial and intraoperative wound cultures grew MRSA. Repeat blood cultures from November 27 negative. Continue IV vancomycin and Levaquin for now. Supportive care with pain control with when necessary oral hydrocodone. services rep on board, plan for ECF placement for continued IV antibiotics due to issues with steady housing. (2) Sepsis Current Visit: Yes Status: Resolved Assessment and plan: Secondary to cellulitis and abscess in right posterior thorax. Improving clinically. One out of 2 initial blood cultures, wound cultures grew MRSA. Continue IV vancomycin. Qualifiers: Sepsis type: methicillin resistant Staphylococcus aureus Qualified Code(s) : A41.02 - Sepsis due to Methicillin resistant Staphylococcus aureus (3) Abscess Current Visit: Yes Status: Acute (4) Tobacco abuse Current Visit: Yes Status: Chronic Assessment and plan: Continue nicotine transdermal patch. - Subjective Interval history: Feels better. Improving upper back pain. No fever, chills, shortness of breath , diarrhea. - Constitutional Vitals: Temp Pulse Resp BP Pulse Ox 98.1 F 100 14 126/81 96 12/04/17 16:14 12/04/17 16:14 12/04/17 16:14 12/04/17 16:14 12/04/17 16:14 General appearance: Present: A&O X 3, answers questions appropriately - Respiratory Respiratory exam: Present: CTAB. Absent: accessory muscle use, rales, rhonchi, wheezes - Cardiovascular Cardiovascular exam: Present: RRR, +S1, +S2. Absent: diastolic murmur, gallop, rubs, systolic murmur - GI/Abdominal GI/Abdominal exam: Present: normal bowel sounds, soft, no peritoneal signs. Absent: distended, tenderness - Back Exam Additional comments: Upper thorax status post incision and drainage wound, dry gauze packing stained with blood. Significantly improved surrounding erythema, induration and tenderness. Internal Medicine: Result - Labs CBC & Chem 7: 12/04/17 06:29 12/04/17 06:29 Labs: Short CBC 12/04/17 Range/Units 06:29 WBC 10.8 (4.3-11.1) K/mcL Hgb 13.6 (12.9-16.9) g/dL Hct 42.0 (37.5-50.1) % Plt Count 283 (140-400) K/mcL Neutrophils # 5.6 (1.6-8.9) K/mcL BMP 12/04/17 06:29 Sodium 136 Potassium 4.3 Chloride 103 Carbon Dioxide 28 BUN 14 Creatinine 0.85 Glucose 99 Calcium 8.6 - VTE Documentation of Mechanical Device: Intermittent pneumatic compression device Consult Discharge Plan - Plan Referrals: Conner Pappas MD [Non-Partnered Physician] -
[2017-12-05] MEDS: *HR* HYDROcodone/Acet 5/325 mg TABLET PO PRN ×3 (03:38→20:30)
[2017-12-05] MEDS: Nicotine 14 MG PATCH.TD24 TD SCH (10:01)
--- NOTE | 2017-12-05 11:27 | General Surgery Progress Note ---
Date of Encounter: 12/05/17 Time of Encounter: 11:23 Subjective Narrative: General Surgery - the patient is complaining of slight increase in pain/ tenderness of the wound up her posterior thorax Patient remains afebrile, currently 98.5; heart rate ranging 72-104, with tachycardia noted during my examination. Respiratory rate 15, blood pressure 119/73 Wound inspected - it remains clean and dry with healthy tissue evident Dressing has not been changed since I last inspected the wound yesterday despite orders for twice a day wound care. Nursing is been informed of the orders pertaining to the twice a day wound care Impression: POD #3 s/p repeat I&D upper posterior thorax abscess. Wound clean and appears healthy Tachycardia - possibly pain driven Plan: continue Vancomycin for MRSA begin wound care as ordered Awaiting ECF placement Objective Vital Signs - Last 8 Hours Temp Pulse Resp BP Pulse Ox 12/05/17 10:51 98.5 F 104 15 119/73 97 12/05/17 07:37 97.5 F L 72 15 103/67 97 12/05/17 03:25 97.5 F L 81 14 125/71 96 Intake and Output 12/04/17 12/05/17 12/05/17 23:59 07:59 15:59 Intake Total 770 / 770 250 / 250 200 / 200 Output Total 2075 / 2075 1500 / 1500 150 / 150 Balance -1305 / -1305 -1250 / -1250 50 / 50 Intake: IV Fluids 650 / 650 250 / 250 Levaquin Premix 750mg/150 mL 150 / 150 750 mg In 150 ml @ 100 mls/hr IVPB DAILY [facility] Rx#:[id number] Vancocin 1,250 MG In 0.9 % 500 / 500 250 / 250 Sodium Chloride 250 ML @ 166. 667 mls/hr IVPB Q8H [facility] Rx#: [id number] Oral 120 / 120 0 / 0 200 / 200 Output: Urine 2075 / 2075 1500 / 1500 150 / 150 Other: Meal Dinner Breakfast Percent of Meal Consumed 100% 100% Weight 88.859 kg Patient Weight 12/05/17 23:59 Weight 88.859 kg - Labs 12/04/17 06:29 12/04/17 06:29 - VTE Documentation of Mechanical Device: Intermittent pneumatic compression device Consult Discharge Plan - Plan Referrals: Conner Pappas MD [Non-Partnered Physician] -
--- NOTE | 2017-12-05 17:08 | Internal Med Progress Note ---
Date of Encounter: 12/05/17 Time of Encounter: 11:00 - Assessment and plan (1) Cellulitis of upper back excluding scapular region Current Visit: Yes Status: Acute Assessment and plan: CT chest shows focal pocket of fluid measuring 4.7 x 1.1 cm, could represent an abscess, with surrounding inflammatory changes along the upper back. Surgery has been consulted, underwent incision and drainage twice on November 27 and December 02. Local wound care with packing per surgery recommendations. One out of 2 blood cultures, superficial and intraoperative wound cultures grew MRSA. Repeat blood cultures from November 27 negative. Continue IV vancomycin and discontinue Levaquin for now. Supportive care with pain control with when necessary oral hydrocodone. enrollment services vice president on board, plan for ECF placement for continued IV antibiotics and wound care due to issues with steady housing. Medically stable; (2) Sepsis Current Visit: Yes Status: Resolved Qualifiers: Sepsis type: methicillin resistant Staphylococcus aureus Qualified Code(s) : A41.02 - Sepsis due to Methicillin resistant Staphylococcus aureus (3) Abscess Current Visit: Yes Status: Acute Assessment and plan: plan as above; (4) Tobacco abuse Current Visit: Yes Status: Chronic Assessment and plan: Continue nicotine transdermal patch. - Subjective Interval history: Feels better. Improving upper back pain. No fever, chills, shortness of breath , diarrhea. Awaiting rehab placement; - Constitutional Vitals: Temp Pulse Resp BP Pulse Ox 98.6 F 93 16 135/86 99 12/05/17 15:03 12/05/17 15:03 12/05/17 15:03 12/05/17 15:03 12/05/17 15:03 General appearance: Present: A&O X 3, answers questions appropriately - Respiratory Respiratory exam: Present: CTAB. Absent: accessory muscle use, rales, rhonchi, wheezes - Cardiovascular Cardiovascular exam: Present: RRR, +S1, +S2. Absent: diastolic murmur, gallop, rubs, systolic murmur - Back Exam Additional comments: Upper posterior thoracic area-large wound secondary to incision and drainage, healing well with erythematous granulation tissue and mild yellowish exudate. Resolved surrounding cellulitis. Internal Medicine: Result - Labs CBC & Chem 7: 12/04/17 06:29 12/04/17 06:29 - VTE Documentation of Mechanical Device: Intermittent pneumatic compression device Consult Discharge Plan - Plan Referrals: Conner Pappas MD [Non-Partnered Physician] -
[2017-12-06] MEDS: Nicotine 14 MG PATCH.TD24 TD SCH (09:01)
[2017-12-06] MEDS: *HR* HYDROcodone/Acet 5/325 mg TABLET PO PRN ×2 (09:07→19:53)
--- NOTE | 2017-12-06 13:11 | General Surgery Progress Note ---
Date of Encounter: 12/06/17 Time of Encounter: 13:08 Subjective Narrative: General Surgery Patient feeling well; voicing no complaints. Previous "soreness" attributed to the wound has resolved Patient remains afebrile, 97.8; pulse 63, respirations 15, blood pressure 117 /85 Wound midline upper posterior thorax - Clean; no pus or purulence surrounding erythema diminishing Impression: waiting ECF placement If ECF not possible, is Home Health a possible solution as patient unable to care for this wound due to its location Objective Vital Signs - Last 8 Hours Temp Pulse Resp BP Pulse Ox 12/06/17 10:46 97.8 F 63 15 117/85 97 12/06/17 08:44 97 12/06/17 06:38 98.5 F 70 15 110/70 97 Intake and Output 12/05/17 12/06/17 12/06/17 23:59 07:59 15:59 Intake Total 250 / 250 0 / 0 240 / 240 Output Total 375 / 375 1200 / 1200 500 / 500 Balance -125 / -125 -1200 / -1200 -260 / -260 Intake: IV Fluids 250 / 250 Vancocin 1,250 MG In 0.9 % 250 / 250 Sodium Chloride 250 ML @ 166.67 mls/hr IVPB Q12H [facility] Rx#: [id number] Oral 0 / 0 0 / 0 240 / 240 Output: Urine 375 / 375 1200 / 1200 500 / 500 Other: Meal Dinner Breakfast Percent of Meal Consumed 100% 100% Weight 88.496 kg Patient Weight 12/06/17 23:59 Weight 88.496 kg - Labs 12/04/17 06:29 12/04/17 06:29 - VTE Documentation of Mechanical Device: Intermittent pneumatic compression device Consult Discharge Plan - Plan Referrals: Conner Pappas MD [Non-Partnered Physician] -
--- NOTE | 2017-12-06 17:37 | Internal Med Progress Note ---
Date of Encounter: 12/06/17 Time of Encounter: 11:00 - Assessment and plan (1) Cellulitis of upper back excluding scapular region Current Visit: Yes Status: Acute Assessment and plan: CT chest shows focal pocket of fluid measuring 4.7 x 1.1 cm, could represent an abscess, with surrounding inflammatory changes along the upper back. Surgery has been consulted, underwent incision and drainage twice on November 27 and December 02. Local wound care with packing per surgery recommendations. One out of 2 blood cultures, superficial and intraoperative wound cultures grew MRSA. Repeat blood cultures from November 27 negative. Continue IV vancomycin- day 11. Supportive care with pain control with when necessary oral hydrocodone. imaging services director on board, plan for ECF placement for continued IV antibiotics and wound care due to issues with steady housing. Medically stable; (2) Sepsis Current Visit: Yes Status: Resolved Qualifiers: Sepsis type: methicillin resistant Staphylococcus aureus Qualified Code(s) : A41.02 - Sepsis due to Methicillin resistant Staphylococcus aureus (3) Abscess Current Visit: Yes Status: Acute (4) Tobacco abuse Current Visit: Yes Status: Chronic Assessment and plan: Continue nicotine transdermal patch. - Subjective Interval history: Feels better. Improving upper back pain. No fever, chills, shortness of breath , diarrhea. Awaiting rehab placement; - Constitutional Vitals: Temp Pulse Resp BP Pulse Ox 97.8 F 106 15 135/94 92 12/06/17 14:25 12/06/17 14:25 12/06/17 14:25 12/06/17 14:25 12/06/17 14:25 General appearance: Present: A&O X 3, answers questions appropriately - Respiratory Respiratory exam: Present: CTAB. Absent: accessory muscle use, rales, rhonchi, wheezes - Cardiovascular Cardiovascular exam: Present: RRR, +S1, +S2. Absent: diastolic murmur, gallop, rubs, systolic murmur Internal Medicine: Result - Labs CBC & Chem 7: 12/04/17 06:29 12/04/17 06:29 - VTE Documentation of Mechanical Device: Intermittent pneumatic compression device Consult Discharge Plan - Plan Referrals: Conner Pappas MD [Non-Partnered Physician] -
[2017-12-07] MEDS: *HR* HYDROcodone/Acet 5/325 mg TABLET PO PRN ×3 (02:30→21:20)
[2017-12-07] MEDS: Nicotine 14 MG PATCH.TD24 TD SCH (08:04)
[2017-12-07 08:24] LABS: BUN/Creatinine Ratio 19 (6-26); Blood Urea Nitrogen 16 mg/dL (6-20); Calcium 9.5 mg/dL (8.6-10.3); Carbon Dioxide 29 mEq/L (23-29); Chloride 99 mEq/L (98-107); Glucose 105 mg/dL (70-105); Osmolality,Calculated 282 (280-300); Potassium 4.4 mEq/L (3.5-5.1); Sodium 135 mEq/L (136-145); eGFR For African Americans > 60 (> 60); eGFR For Non-African Americans > 60 (> 60)
--- NOTE | 2017-12-07 12:44 | Discharge Summary ---
Date of Encounter: 12/07/17 Time of Encounter: 12:40 - Discharge Diagnosis (1) Cellulitis of upper back excluding scapular region Priority: Primary Status: Acute (2) Sepsis Priority: Primary Status: Resolved Qualifiers: Sepsis type: methicillin resistant Staphylococcus aureus Qualified Code(s) : A41.02 - Sepsis due to Methicillin resistant Staphylococcus aureus (3) Abscess Priority: Primary Status: Acute (4) Tobacco abuse Priority: Secondary Status: Chronic Hospital course: Mr. Waggoner is a 41 year old male with no significant past medical history, who was admitted with fever, malaise, draining wound on the upper back. He was noted to have cellulitis and abscess and upper back to the right of midline. CT chest shows focal pocket of fluid measuring 4.7 x 1.1 cm, could represent an abscess, with surrounding inflammatory changes along the upper back. He was noted to be septic, started on aggressive IV hydration and broad- spectrum IV antibiotics-vancomycin and Zosyn. Surgery was consulted and patient underwent incision and drainage twice on November 27 and December 02. He is being continued on wound care with packing, wound is currently noted to be healing well with healthy granulation tissue. One out of 2 peripheral blood cultures grew MRSA. Superficial and operative wound cultures also grew MRSA. He currently requires at least 14 days of IV antibiotics, on vancomycin. Echocardiogram is pending at this time. disabilities services officer are involved as patient is homeless, he requires ECF placement for continued wound care and IV antibiotics. He is otherwise medically stable. Discharge discussed with: patient Time spent discussing smoking cessation with patient: 3 to 10 minutes - Time Spent with Patient Total time spent providing and/or coordinating discharge services: Greater than 30 minutes (45 min) - Discharge Medications Prescriptions: HYDROcodone/Acet 5/325 mg [[place] 5-325 mg] 1 tab PO Q6HR PRN 5 Days #10 tablet PRN Reason: Pain Vancomycin/0.9 % Sod Chloride [Vanco 1.5 gm/500 ml-0.9% NaCl] 1.5 gm IV Q12H #5 plast..bag Home Medications: HYDROcodone/Acet 5/325 mg [[place] 5-325 mg] 1 tab PO Q6HR PRN 5 Days #10 tablet 12/07/17 [Rx] Nicotine Patch [Nicoderm] 14 mg TD DAILY patch.td24 12/07/17 [Rx] Vancomycin/0.9 % Sod Chloride [Vanco 1.5 gm/500 ml-0.9% NaCl] 1.5 gm IV Q12H #5 plast..bag 12/07/17 [Rx] Allergies/Adverse Reactions: 3 Allergy/AdvReac Type Severity Reaction Status Date / Time No Known Allergies Allergy Verified 11/25/17 16:48 Date of admission: 11/25/17 21:55 Primary care physician: PCP NONE Consults: 11/25/17 22:02 Consult to Practicing Dermatologist [CONS] Routine Reason for SW Consult: Possible need for IV antibiotics after discharge. 11/26/17 10:44 Consult to Surgery [CONS] Routine Consulting Provider: Surgery Ashlee Pappas Reason for Consult: Upper back abscess, cellulitis, sepsis Call Completed: Yes Discharging clinician: Kait Hartmann Anticipated date of discharge: 12/07/17 - Constitutional Vitals: Temp Pulse Resp BP Pulse Ox 97.5 F L 106 16 125/81 97 12/07/17 10:41 12/07/17 10:41 12/07/17 10:41 12/07/17 10:41 12/07/17 10:41 General appearance: Present: A&O X 3, answers questions appropriately - Cardiovascular Cardiovascular exam: Present: RRR, +S1, +S2. Absent: diastolic murmur, gallop, rubs, systolic murmur - Patient Status Disposition: Transfer SNF Condition: Good Functional capacity at discharge: independent ambulation Overall status at discharge: patient is progressing back to baseline - Discharge Instructions Follow Up With: Conner Pappas MD [Non-Partnered Physician] - Additional Instructions: F/up with Surgery in 1-2 weeks - Diet and Activity Activity: resume usual activities as tolerated Diet: advance to your usual diet - VTE Documentation of Mechanical Device: Intermittent pneumatic compression device
[2017-12-08] MEDS: Nicotine 14 MG PATCH.TD24 TD SCH (08:50)
[2017-12-08] MEDS: *HR* HYDROcodone/Acet 5/325 mg TABLET PO PRN ×2 (08:52→16:54)
--- NOTE | 2017-12-08 09:35 | General Surgery Progress Note ---
Date of Encounter: 12/08/17 Time of Encounter: 09:32 Subjective Patient reports: no new complaints Narrative: General Surgery - Patient feeling well, voicing no complaints. No reported wound pain. Afebrile, current pulse 85; the patient was tachycardic 101-106 during the night; respirations 15, blood pressure 112/66 Abscess upper mid posterior thorax healthy, with no significant fibrinous exudate Discussed with Fr Hartmann. Vancomycin for MRSA to be completed tomorrow. Placement pendings Objective Vital Signs - Last 8 Hours Temp Pulse Resp BP Pulse Ox 12/08/17 07:13 98.1 F 85 15 112/66 97 Intake and Output 12/07/17 12/08/17 12/08/17 23:59 07:59 15:59 Intake Total 960 / 960 720 / 720 610 / 610 Output Total 850 / 850 650 / 650 Balance 110 / 110 70 / 70 610 / 610 Intake: IV Fluids 250 / 250 Vancocin 1,500 MG In 0.9 % 250 / 250 Sodium Chloride 250 ML @ 166.67 mls/hr IVPB Q12H [facility] Rx#: [id number] Oral 960 / 960 720 / 720 360 / 360 Output: Urine 850 / 850 650 / 650 Other: Meal Dinner Breakfast Percent of Meal Consumed 100% 100% Weight 88.52 kg Patient Weight 12/08/17 23:59 Weight 88.52 kg - Labs 12/04/17 06:29 12/07/17 07:12 - VTE Documentation of Mechanical Device: Intermittent pneumatic compression device Consult Discharge Plan - Plan Additional Instructions: F/up with Surgery in 1-2 weeks Referrals: Conner Pappas MD [Non-Partnered Physician] - Prescriptions: HYDROcodone/Acet 5/325 mg [[place] 5-325 mg] 1 tab PO Q6HR PRN 5 Days #10 tablet PRN Reason: Pain Vancomycin/0.9 % Sod Chloride [Vanco 1.5 gm/500 ml-0.9% NaCl] 1.5 gm IV Q12H #5 plast..bag
--- NOTE | 2017-12-08 10:41 | Internal Med Progress Note ---
Date of Encounter: 12/08/17 Time of Encounter: 09:50 - Assessment and plan (1) Cellulitis of upper back excluding scapular region Current Visit: Yes Status: Acute Assessment and plan: CT chest shows focal pocket of fluid measuring 4.7 x 1.1 cm, could represent an abscess, with surrounding inflammatory changes along the upper back. Surgery has been consulted, underwent incision and drainage twice on November 27 and December 02. Local wound care with packing per surgery recommendations. d/w Surgery -Wound healing well; One out of 2 initial blood cultures, and superficial and intraoperative wound cultures grew MRSA. Repeat blood cultures from November 27 negative. Continue IV vancomycin- day 13. F/up TTE in light of MRSA bacteremia; Supportive care with pain control with when necessary oral hydrocodone. business services associate on board, plan for ECF placement for continued IV antibiotics and wound care due to issues with steady housing. Medically stable; (2) Sepsis Current Visit: Yes Status: Resolved Qualifiers: Sepsis type: methicillin resistant Staphylococcus aureus Qualified Code(s) : A41.02 - Sepsis due to Methicillin resistant Staphylococcus aureus (3) Abscess Current Visit: Yes Status: Acute (4) Tobacco abuse Current Visit: Yes Status: Chronic - Subjective Interval history: No new complaints; back wound healing well; awaiting rehab placement; - Constitutional Vitals: Temp Pulse Resp BP Pulse Ox 98.1 F 85 15 112/66 97 12/08/17 07:13 12/08/17 07:13 12/08/17 07:13 12/08/17 07:13 12/08/17 07:13 General appearance: Present: A&O X 3, answers questions appropriately - Respiratory Respiratory exam: Present: CTAB. Absent: accessory muscle use, rales, rhonchi, wheezes - Cardiovascular Cardiovascular exam: Present: RRR, +S1, +S2. Absent: diastolic murmur, gallop, rubs, systolic murmur Internal Medicine: Result - Labs CBC & Chem 7: 12/04/17 06:29 12/07/17 07:12 - VTE Documentation of Mechanical Device: Intermittent pneumatic compression device Consult Discharge Plan - Plan Additional Instructions: F/up with Surgery in 1-2 weeks Referrals: Conner Pappas MD [Non-Partnered Physician] - Prescriptions: HYDROcodone/Acet 5/325 mg [[place] 5-325 mg] 1 tab PO Q6HR PRN 5 Days #10 tablet PRN Reason: Pain Vancomycin/0.9 % Sod Chloride [Vanco 1.5 gm/500 ml-0.9% NaCl] 1.5 gm IV Q12H #5 plast..bag
[2017-12-09] MEDS: *HR* HYDROcodone/Acet 5/325 mg TABLET PO PRN ×3 (00:03→19:47)
[2017-12-09] MEDS: Nicotine 14 MG PATCH.TD24 TD SCH (09:43)
--- NOTE | 2017-12-09 10:53 | General Surgery Progress Note ---
Date of Encounter: 12/09/17 Time of Encounter: 10:49 Subjective Patient reports: no new complaints Narrative: General Surgery Wound remains healthy. Dressing changed - no obvious purulent drainage on the dressing Impression: MRSA abscess upper midline posterior thorax - status post incision and debridement 11/27/17; repeat debridement/ Wound has responded to debridement and appropriate IV antibiotics Placement pending to facilitate continued wound care Recommendations: Surgical follow-up approximately every 2-3 weeks until wound is fully healed Continue local wound care but continued antibiotic therapy to be determined by Primary Service or Infectious Disease Objective Vital Signs - Last 8 Hours Temp Pulse Resp BP Pulse Ox 12/09/17 08:48 97.6 F 95 16 117/74 97 12/09/17 03:10 98.6 F 72 14 133/73 99 Intake and Output 12/08/17 12/09/17 12/09/17 23:59 07:59 15:59 Intake Total 500 / 500 480 / 480 Output Total 300 / 300 1050 / 1050 700 / 700 Balance 200 / 200 -570 / -570 -700 / -700 Intake: IV Fluids 500 / 500 Vancocin 1,500 MG In 0.9 % 500 / 500 Sodium Chloride 250 ML @ 166.67 mls/hr IVPB Q12H [facility] Rx#: [id number] Oral 0 / 0 480 / 480 Output: Urine 300 / 300 1050 / 1050 700 / 700 Other: Meal Dinner Percent of Meal Consumed 100% Weight 88.4 kg Patient Weight 12/09/17 23:59 Weight 88.4 kg - Labs 12/04/17 06:29 12/07/17 07:12 - VTE Documentation of Mechanical Device: Intermittent pneumatic compression device Consult Discharge Plan - Plan Additional Instructions: F/up with Surgery in 1-2 weeks Referrals: Conner Pappas MD [Non-Partnered Physician] - Prescriptions: HYDROcodone/Acet 5/325 mg [[place] 5-325 mg] 1 tab PO Q6HR PRN 5 Days #10 tablet PRN Reason: Pain Vancomycin/0.9 % Sod Chloride [Vanco 1.5 gm/500 ml-0.9% NaCl] 1.5 gm IV Q12H #5 plast..bag
--- NOTE | 2017-12-09 11:36 | Internal Med Progress Note ---
Date of Encounter: 12/09/17 Time of Encounter: 10:45 - Assessment and plan (1) Cellulitis of upper back excluding scapular region Current Visit: Yes Status: Acute Assessment and plan: CT chest shows focal pocket of fluid measuring 4.7 x 1.1 cm, could represent an abscess, with surrounding inflammatory changes along the upper back. Surgery has been consulted, underwent incision and drainage twice on November 27 and December 02. Local wound care with packing per surgery recommendations. d/w Surgery -Wound healing well; One out of 2 initial blood cultures, and superficial and intraoperative wound cultures grew MRSA. Repeat blood cultures from November 27 negative. Continue IV vancomycin- day 14. TTE showed no e/o- valvular vegetations. Completed 14 days of IV antibiotics. Supportive care with pain control with when necessary oral hydrocodone. creative services specialist on board, plan for ECF placement for wound care due to issues with steady housing. Medically stable for discharge; (2) Sepsis Current Visit: Yes Status: Resolved Qualifiers: Sepsis type: methicillin resistant Staphylococcus aureus Qualified Code(s) : A41.02 - Sepsis due to Methicillin resistant Staphylococcus aureus (3) Abscess Current Visit: Yes Status: Acute (4) Tobacco abuse Current Visit: Yes Status: Chronic Assessment and plan: Continue nicotine transdermal patch. - Subjective Interval history: No new complaints; back wound healing well; awaiting rehab placement; - Constitutional Vitals: Temp Pulse Resp BP Pulse Ox 98.4 F 82 16 135/87 99 12/09/17 11:09 12/09/17 11:09 12/09/17 11:09 12/09/17 11:09 12/09/17 11:09 General appearance: Present: A&O X 3, answers questions appropriately - Respiratory Respiratory exam: Present: CTAB. Absent: accessory muscle use, rales, rhonchi, wheezes - Cardiovascular Cardiovascular exam: Present: RRR, +S1, +S2. Absent: diastolic murmur, gallop, rubs, systolic murmur Internal Medicine: Result - Labs CBC & Chem 7: 12/04/17 06:29 12/07/17 07:12 - VTE Documentation of Mechanical Device: Intermittent pneumatic compression device Consult Discharge Plan - Plan Additional Instructions: F/up with Surgery in 1-2 weeks Referrals: Conner Pappas MD [Non-Partnered Physician] - Prescriptions: HYDROcodone/Acet 5/325 mg [[place] 5-325 mg] 1 tab PO Q6HR PRN 5 Days #10 tablet PRN Reason: Pain Vancomycin/0.9 % Sod Chloride [Vanco 1.5 gm/500 ml-0.9% NaCl] 1.5 gm IV Q12H #5 plast..bag
[2017-12-09] MEDS ORDERED: Aminoglycoside Consult 1 EACH MC ONE (20:31)
[2017-12-10] MEDS: Nicotine 14 MG PATCH.TD24 TD SCH (08:21)
[2017-12-10] MEDS: *HR* HYDROcodone/Acet 5/325 mg TABLET PO PRN ×2 (08:21→15:01)
[2017-12-10 14:55] VITALS: BP 129/84
--- NOTE | 2017-12-10 15:23 | Internal Med Progress Note ---
Date of Encounter: 12/10/17 Time of Encounter: 10:30 - Assessment and plan (1) Cellulitis of upper back excluding scapular region Current Visit: Yes Status: Acute Assessment and plan: Surgery has been consulted, underwent incision and drainage twice on November 27 and December 02. Local wound care with packing per surgery recommendations. d/w Surgery -Wound healing well; One out of 2 initial blood cultures, and superficial and intraoperative wound cultures grew MRSA. Repeat blood cultures from November 27 negative. TTE showed no e/o- valvular vegetations. Completed 14 days of IV antibiotics. No further antibiotics. Supportive care with pain control with when necessary oral hydrocodone. food services manager on board, plan for ECF placement for wound care due to issues with steady housing. Medically stable for discharge today; d/w CM; (2) Sepsis Current Visit: Yes Status: Resolved Qualifiers: Sepsis type: methicillin resistant Staphylococcus aureus Qualified Code(s) : A41.02 - Sepsis due to Methicillin resistant Staphylococcus aureus (3) Abscess Current Visit: Yes Status: Acute (4) Tobacco abuse Current Visit: Yes Status: Chronic - Subjective Interval history: No new complaints; back wound healing well; awaiting rehab placement, possible discharge today; - Constitutional Vitals: Temp Pulse Resp BP Pulse Ox 98.1 F 95 16 129/84 98 12/10/17 14:47 12/10/17 14:47 12/10/17 14:47 12/10/17 14:47 12/10/17 14:47 General appearance: Present: A&O X 3, answers questions appropriately - Respiratory Respiratory exam: Present: CTAB. Absent: accessory muscle use, rales, rhonchi, wheezes - Cardiovascular Cardiovascular exam: Present: RRR, +S1, +S2. Absent: diastolic murmur, gallop, rubs, systolic murmur Internal Medicine: Result - Labs CBC & Chem 7: 12/04/17 06:29 12/07/17 07:12 - VTE Documentation of Mechanical Device: Intermittent pneumatic compression device Consult Discharge Plan - Plan Additional Instructions: F/up with Surgery in 1-2 weeks Referrals: Conner Pappas MD [Non-Partnered Physician] - Prescriptions: HYDROcodone/Acet 5/325 mg [[place] 5-325 mg] 1 tab PO Q6HR PRN 5 Days #10 tablet PRN Reason: Pain
--- NOTE | 2017-12-10 18:34 | Physician Discharge Referral ---
ExtendedCare Referral Info Transfer To: [facility] Provider in Charge: Kait Hartmann Provider in Charge after Transfer: PCP Institutional Level of Care: Skilled - Diagnosis (1) Cellulitis of upper back excluding scapular region Priority: Primary Status: Acute (2) Sepsis Priority: Primary Status: Resolved (3) Abscess Priority: Primary Status: Acute (4) Tobacco abuse Priority: Secondary Status: Chronic Expected Duration of Placement: 3 weeks Prognosis: Good Aware of Diagnosis: Patient Aware of Prognosis: Patient - Transfer Medications Prescriptions: HYDROcodone/Acet 5/325 mg [[place] 5-325 mg] 1 tab PO Q6HR PRN 5 Days #10 tablet PRN Reason: Pain Home Medications: HYDROcodone/Acet 5/325 mg [[place] 5-325 mg] 1 tab PO Q6HR PRN 5 Days #10 tablet 12/07/17 [Rx] Nicotine Patch [Nicoderm] 14 mg TD DAILY patch.td24 12/07/17 [Rx] Allergies/Adverse Reactions: 3 Allergy/AdvReac Type Severity Reaction Status Date / Time No Known Allergies Allergy Verified 11/25/17 16:48 - Respiratory Orders Smoking Cessation: Smoking cessation has been advised. For more information, call the [place] Tobacco Quit Line at 7-331-UECMNOW. - Advance Directives Code Status: Full Code - Mobility Orders Ambulate - Rehabiliation Orders Rehab Potential: Good Other: Wound care orders per Surgery recommendations; - Diet Orders Regular CERTIFICATION: I certify that the transfer of the above named patient to an Extended Care Facility is necessary for the continuing treatment of the diagnosis listed. The above information is true and accurate reflection of patient's current condition. Confidential - Redisclosure prohibited without a patient's written consent.
== END 2017-12-10 20:32 | DRG 720 ==
LOC: 3ANU → SUATTDRO 21:55
PROVIDERS: ADMIT Family Medicine; ATTEND Internal Medicine